=== PATIENT | male | born 1990 | race African-American/Black ===

== ENCOUNTER 2022-03-31 15:40 | Inpatient (IN) | payer OTHER ==
[2022-03-31 16:47] VITALS: RESP 18
[2022-03-31] MEDS ORDERED: NICOTINE 10 MG CARTRIDGE (INHALER) IH PRN (19:12)
[2022-03-31] MEDS ORDERED: MAG HYDROX/AL HYDROX/SIMETH 30 ML UNIT-DOSE CUP PO PRN (19:12)
[2022-03-31] MEDS ORDERED: IBUPROFEN 400 MG TABLET (FP) PO PRN (19:12)
[2022-03-31] MEDS ORDERED: DICYCLOMINE HCL 10 MG CAPSULE PO PRN (19:12)
[2022-03-31] MEDS ORDERED: BENZOCAINE/MENTHOL (CHLORASEPTIC ) LOZENGE MM PRN (19:12)
[2022-03-31] MEDS ORDERED: BISMUTH SUBSALICYLATE 524 MG/30 ML PO PRN (19:12)
[2022-03-31] MEDS ORDERED: ACETAMINOPHEN 325 MG TABLET (FP) PO PRN ×2 (19:12)
[2022-03-31] MEDS ORDERED: LOPERAMIDE HCL 2 MG CAPSULE PO PRN (19:12)
[2022-03-31] MEDS ORDERED: METHOCARBAMOL 500 MG TABLET PO PRN (19:12)
[2022-03-31] MEDS ORDERED: MAGNESIUM HYDROX 2400MG/30ML ORAL SUSPENSION 30 ML CUP PO PRN (19:12)
[2022-03-31] MEDS ORDERED: ONDANSETRON *ODT* 4 MG TABLET SL PRN (19:12)
[2022-03-31] MEDS ORDERED: IBUPROFEN 600 MG TABLET (FP) PO PRN (19:12)
[2022-03-31] MEDS ORDERED: MAGNESIUM CITRATE 300 ML BOTTLE PO PRN (19:12)
[2022-03-31 19:45] VITALS: BMI 20.3
[2022-03-31] MEDS: THIAMINE HCL 100 MG TABLET (FP) PO SCH (22:37)
[2022-03-31] MEDS: MELATONIN 5 MG TABLETS PO SCH (22:37)
[2022-03-31] MEDS: levETIRAcetam 500 MG TABLET (FP) PO SCH (22:37)
[2022-03-31] MEDS: hydrOXYzine PAMOATE 25 MG CAPSULE (FP) PO SCH (22:37)
[2022-04-01] MEDS: hydrOXYzine PAMOATE 25 MG CAPSULE (FP) PO SCH ×5 (07:21→21:28)
[2022-04-01] MEDS: levETIRAcetam 500 MG TABLET (FP) PO SCH ×2 (10:49→21:28)
[2022-04-01] MEDS: PRENATAL VITAMINS W/ FOLIC ACID TABLET (FP) PO SCH (10:49)
[2022-04-01 14:21] LABS: HEMATOCRIT 40.2 % (35.4-49); MCHC 34.8 g/dl (32.0-35.9); MEAN CELL VOLUME 103.2 fl (80-96); MEAN PLT VOLUME 9.2 fl (7.5-11.1); PLATELET COUNT 182 10^3/uL (134-434); WHITE BLOOD COUNT 5.3 K/mm3 (4.0-10.0)
[2022-04-01 14:33] LABS: CALCIUM 9.1 mg/dL (8.5-10.1)
[2022-04-01 14:34] LABS: ALBUMIN 3.9 g/dl (3.4-5.0); BLOOD UREA NITROGEN 12.2 mg/dL (7-18)
[2022-04-01 14:38] LABS: BILIRUBIN,TOTAL 0.5 mg/dL (0.2-1); TOT PROT 7.2 g/dl (6.4-8.2)
[2022-04-01] MEDS: THIAMINE HCL 100 MG TABLET (FP) PO SCH (21:28)
[2022-04-01] MEDS: MELATONIN 5 MG TABLETS PO SCH (21:28)
[2022-04-02] MEDS: hydrOXYzine PAMOATE 25 MG CAPSULE (FP) PO SCH ×3 (08:02→13:27)
[2022-04-02 08:55] VITALS: PULSE 67
[2022-04-02] MEDS: PRENATAL VITAMINS W/ FOLIC ACID TABLET (FP) PO SCH (10:22)
[2022-04-02] MEDS: levETIRAcetam 500 MG TABLET (FP) PO SCH (10:22)
[2022-04-02 13:17] VITALS: BP 148/98; TEMP 97.3
== END 2022-04-02 13:02 | disposition home or self-care (01) | DRG 775 ==
LOC: YASAS 15:40 → UNDOADMIN 18:44 → Y3N 18:44 → UNDOADMIN 18:48
PROVIDERS: ADMIT Allergy & Immunology; ATTEND Surgery
PROC: HZ2ZZZZ Detoxification Services for Substance Abuse Treatment (ICD-10-PCS; principal; 2022-03-31)
DX: F10.230 Alcohol dependence with withdrawal, uncomplicated (principal); G40.909 Epilepsy, unspecified, not intractable, without status epilepticus; J45.909 Unspecified asthma, uncomplicated; R03.0 Elevated blood-pressure reading, without diagnosis of hypertension; R73.9 Hyperglycemia, unspecified
CPT/HCPCS: 36415; 80053; 85027; 86780; 87811; C9803-CS; U0003; U0005

== ENCOUNTER 2022-04-25 14:00 | Inpatient (IN) | payer OTHER ==
[2022-04-25 16:47] VITALS: BMI 20.3
[2022-04-25] MEDS ORDERED: IBUPROFEN 600 MG TABLET (FP) PO PRN (19:54)
[2022-04-25] MEDS ORDERED: MAGNESIUM HYDROX 2400MG/30ML ORAL SUSPENSION 30 ML CUP PO PRN (19:54)
[2022-04-25] MEDS ORDERED: NALOXONE HCL (KLOXXADO) 8 MG SPRAY NS PRN (19:54)
[2022-04-25] MEDS ORDERED: ONDANSETRON *ODT* 4 MG TABLET SL PRN (19:54)
[2022-04-25] MEDS ORDERED: LOPERAMIDE HCL 2 MG CAPSULE PO PRN (19:54)
[2022-04-25] MEDS ORDERED: MAGNESIUM CITRATE 300 ML BOTTLE PO PRN (19:54)
[2022-04-25] MEDS ORDERED: BISMUTH SUBSALICYLATE 524 MG/30 ML PO PRN (19:54)
[2022-04-25] MEDS ORDERED: DICYCLOMINE HCL 10 MG CAPSULE PO PRN (19:54)
[2022-04-25] MEDS ORDERED: BENZOCAINE/MENTHOL (CHLORASEPTIC ) LOZENGE MM PRN (19:54)
[2022-04-25] MEDS ORDERED: MAG HYDROX/AL HYDROX/SIMETH 30 ML UNIT-DOSE CUP PO PRN (19:54)
[2022-04-25] MEDS ORDERED: ACETAMINOPHEN 325 MG TABLET (FP) PO PRN ×2 (19:54)
[2022-04-25] MEDS ORDERED: IBUPROFEN 400 MG TABLET (FP) PO PRN (19:54)
[2022-04-25] MEDS ORDERED: chlordiazePOXIDE HCL 25 MG CAPSULE PO PRN (19:56)
[2022-04-25] MEDS: THIAMINE HCL 100 MG TABLET (FP) PO SCH (21:22)
[2022-04-25] MEDS: METHOCARBAMOL 500 MG TABLET PO PRN (21:22)
[2022-04-25] MEDS: MELATONIN 5 MG TABLETS PO SCH (21:22)
[2022-04-25] MEDS: chlordiazePOXIDE HCL 25 MG CAPSULE PO SCH (22:55)
[2022-04-26] MEDS: chlordiazePOXIDE HCL 25 MG CAPSULE PO SCH ×4 (06:10→22:20)
[2022-04-26] MEDS: PRENATAL VITAMINS W/ FOLIC ACID TABLET (FP) PO SCH (10:25)
[2022-04-26 12:54] LABS: HEMATOCRIT 38.3 % (35.4-49); HEMOGLOBIN 13.4 GM/dL (11.7-16.9); MCHC 35.1 g/dl (32.0-35.9); MEAN CELL VOLUME 102.7 fl (80-96); MEAN PLT VOLUME 9.1 fl (7.5-11.1); PLATELET COUNT 154 10^3/uL (134-434); RBC 3.73 M/mm3 (4.00-5.60); RDW 13.1 % (11.9-15.9); WHITE BLOOD COUNT 4.3 K/mm3 (4.0-10.0)
[2022-04-26 13:04] LABS: CALCIUM 8.8 mg/dL (8.5-10.1)
[2022-04-26 13:05] LABS: ALBUMIN 3.6 g/dl (3.4-5.0); BLOOD UREA NITROGEN 10.6 mg/dL (7-18)
[2022-04-26 13:08] LABS: CREATININE 0.9 mg/dL (0.55-1.3)
[2022-04-26 13:10] LABS: BILIRUBIN,TOTAL 0.4 mg/dL (0.2-1); TOT PROT 6.9 g/dl (6.4-8.2)
[2022-04-26] MEDS: THIAMINE HCL 100 MG TABLET (FP) PO SCH (22:20)
[2022-04-26] MEDS: METHOCARBAMOL 500 MG TABLET PO PRN (22:20)
[2022-04-26] MEDS: cloNIDine HCL 0.1 MG TABLET PO PRN (22:20)
[2022-04-26] MEDS: MELATONIN 5 MG TABLETS PO SCH (22:21)
[2022-04-27] MEDS: chlordiazePOXIDE HCL 25 MG CAPSULE PO SCH ×4 (05:39→22:43)
[2022-04-27] MEDS: PRENATAL VITAMINS W/ FOLIC ACID TABLET (FP) PO SCH (10:11)
[2022-04-27] MEDS ORDERED: MECLIZINE HCL 25 MG TABLET (FP) PO PRN (10:42)
[2022-04-27] MEDS ORDERED: ALBUTEROL SO4 HFA INHALER IH PRN (10:42)
[2022-04-27] MEDS: levETIRAcetam 500 MG TABLET (FP) PO SCH ×2 (12:14→22:43)
[2022-04-27] MEDS: FAMOTIDINE 20 MG TABLET PO SCH ×2 (12:14→22:45)
[2022-04-27] MEDS: THIAMINE HCL 100 MG TABLET (FP) PO SCH (22:43)
[2022-04-27] MEDS: MELATONIN 5 MG TABLETS PO SCH (22:45)
[2022-04-28] MEDS ORDERED: chlordiazePOXIDE HCL 10 MG CAPSULE PO PRN
[2022-04-28] MEDS: chlordiazePOXIDE HCL 10 MG CAPSULE PO SCH ×4 (06:17→22:20)
[2022-04-28] MEDS: PRENATAL VITAMINS W/ FOLIC ACID TABLET (FP) PO SCH (10:52)
[2022-04-28] MEDS: levETIRAcetam 500 MG TABLET (FP) PO SCH ×2 (10:53→22:21)
[2022-04-28] MEDS: FAMOTIDINE 20 MG TABLET PO SCH ×2 (10:55→22:21)
[2022-04-28] MEDS: MELATONIN 5 MG TABLETS PO SCH (22:21)
[2022-04-28] MEDS: THIAMINE HCL 100 MG TABLET (FP) PO SCH (22:22)
[2022-04-28] MEDS: cloNIDine HCL 0.1 MG TABLET PO PRN (22:24)
[2022-04-29] MEDS: chlordiazePOXIDE HCL 10 MG CAPSULE PO SCH ×2 (05:49→18:00)
[2022-04-29] MEDS: levETIRAcetam 500 MG TABLET (FP) PO SCH ×2 (10:32→22:34)
[2022-04-29] MEDS: FAMOTIDINE 20 MG TABLET PO SCH ×3 (10:32→22:36)
[2022-04-29] MEDS: PRENATAL VITAMINS W/ FOLIC ACID TABLET (FP) PO SCH (10:32)
[2022-04-29] MEDS: THIAMINE HCL 100 MG TABLET (FP) PO SCH (22:34)
[2022-04-29] MEDS: MELATONIN 5 MG TABLETS PO SCH (22:35)
[2022-04-30] MEDS ORDERED: chlordiazePOXIDE HCL 10 MG CAPSULE PO ONE (05:00)
[2022-04-30] MEDS: levETIRAcetam 500 MG TABLET (FP) PO SCH (10:10)
[2022-04-30] MEDS: FAMOTIDINE 20 MG TABLET PO SCH (10:10)
[2022-04-30] MEDS: PRENATAL VITAMINS W/ FOLIC ACID TABLET (FP) PO SCH (10:10)
[2022-04-30 13:02] VITALS: BP 160/102; PULSE 68; RESP 17; TEMP 97.1
== END 2022-04-30 14:07 | disposition home or self-care (01) | DRG 775 ==
LOC: YASAS 14:00 → Y6N 20:22
PROVIDERS: ADMIT Allergy & Immunology; ATTEND Family Medicine Addiction Medicine
PROC: HZ2ZZZZ Detoxification Services for Substance Abuse Treatment (ICD-10-PCS; principal; 2022-04-25)
DX: F10.230 Alcohol dependence with withdrawal, uncomplicated (principal); G40.909 Epilepsy, unspecified, not intractable, without status epilepticus; J45.20 Mild intermittent asthma, uncomplicated; K21.9 Gastro-esophageal reflux disease without esophagitis; R03.0 Elevated blood-pressure reading, without diagnosis of hypertension
CPT/HCPCS: 36415; 80053; 82746; 85027; 86780; 93005; 93010; C9803-CS; U0003; U0005

== ENCOUNTER 2022-05-01 11:29 | Inpatient (IN) | payer OTHER ==
[2022-05-01 12:11] VITALS: BMI 20.3
[2022-05-01] MEDS ORDERED: ACETAMINOPHEN 325 MG TABLET (FP) PO PRN (12:39)
[2022-05-01] MEDS ORDERED: P-EPHED 60MG/TRIPROLIDI 2.5MG TABLET PO PRN (12:39)
[2022-05-01] MEDS ORDERED: MAGNESIUM CITRATE 300 ML BOTTLE PO PRN (12:39)
[2022-05-01] MEDS ORDERED: LOPERAMIDE HCL 2 MG CAPSULE PO PRN (12:39)
[2022-05-01] MEDS ORDERED: MAG HYDROX/AL HYDROX/SIMETH 30 ML UNIT-DOSE CUP PO PRN (12:39)
[2022-05-01] MEDS ORDERED: MAGNESIUM HYDROX 2400MG/30ML ORAL SUSPENSION 30 ML CUP PO PRN (12:39)
[2022-05-01] MEDS ORDERED: guaiFENesin 200 MG/10 ML 10 ML UNIT-DOSE CUPS PO PRN (12:39)
[2022-05-01] MEDS ORDERED: IBUPROFEN 400 MG TABLET (FP) PO PRN (12:39)
[2022-05-01 16:09] LABS: HEMATOCRIT 40.6 % (35.4-49); HEMOGLOBIN 13.9 GM/dL (11.7-16.9); MCH 34.9 pg (25.7-33.7); MCHC 34.2 g/dl (32.0-35.9); MEAN CELL VOLUME 102.1 fl (80-96); MEAN PLT VOLUME 9.1 fl (7.5-11.1); PLATELET COUNT 242 10^3/uL (134-434); RBC 3.98 M/mm3 (4.00-5.60); RDW 13.1 % (11.9-15.9); WHITE BLOOD COUNT 6.3 K/mm3 (4.0-10.0)
[2022-05-01 16:12] LABS: BLOOD UREA NITROGEN 9.8 mg/dL (7-18); CALCIUM 9.3 mg/dL (8.5-10.1)
[2022-05-01 16:13] LABS: ALBUMIN 4.2 g/dl (3.4-5.0)
[2022-05-01 16:15] LABS: CREATININE 0.9 mg/dL (0.55-1.3)
[2022-05-01 16:17] LABS: BILIRUBIN,TOTAL 0.3 mg/dL (0.2-1); TOT PROT 7.9 g/dl (6.4-8.2)
[2022-05-01 16:40] LABS: SYPHILIS W/ RPR CONF NON-REACTIVE (NONREACTIVE)
[2022-05-01] MEDS: hydrOXYzine PAMOATE 25 MG CAPSULE (FP) PO SCH ×3 (17:55→21:25)
[2022-05-01] MEDS: PRENATAL VITAMINS W/ FOLIC ACID TABLET (FP) PO SCH (17:55)
[2022-05-01 20:53] LABS: URINE APPEARANCE CLEAR; URINE BILIRUBIN NEGATIVE (NEGATIVE); URINE COLOR YELLOW; URINE GLUCOSE (UA) NEGATIVE (NEGATIVE); URINE KETONE TRACE (NEGATIVE); URINE LEUK ESTERASE NEGATIVE (NEGATIVE); URINE NITRITE NEGATIVE (NEGATIVE); URINE PROTEIN NEGATIVE (NEGATIVE)
[2022-05-01] MEDS: MELATONIN 5 MG TABLETS PO SCH (21:25)
[2022-05-01] MEDS: THIAMINE HCL 100 MG TABLET (FP) PO SCH (21:25)
[2022-05-01] MEDS: levETIRAcetam 500 MG TABLET (FP) PO SCH (21:25)
[2022-05-02] MEDS: hydrOXYzine PAMOATE 25 MG CAPSULE (FP) PO SCH ×3 (06:32→14:14)
[2022-05-02] MEDS: ALBUTEROL SO4 HFA INHALER IH PRN (06:34)
[2022-05-02 06:53] VITALS: RESP 18
[2022-05-02] MEDS: PRENATAL VITAMINS W/ FOLIC ACID TABLET (FP) PO SCH (10:42)
[2022-05-02] MEDS: levETIRAcetam 500 MG TABLET (FP) PO SCH ×2 (10:42→21:12)
[2022-05-02] MEDS ORDERED: FAMOTIDINE 20 MG TABLET PO PRN (16:22)
[2022-05-02] MEDS: MELATONIN 5 MG TABLETS PO SCH (21:11)
[2022-05-02] MEDS: THIAMINE HCL 100 MG TABLET (FP) PO SCH (21:11)
[2022-05-03] MEDS: hydrOXYzine PAMOATE 25 MG CAPSULE (FP) PO PRN (06:20)
[2022-05-03] MEDS: ALBUTEROL SO4 HFA INHALER IH PRN ×2 (06:50→18:30)
[2022-05-03] MEDS: levETIRAcetam 500 MG TABLET (FP) PO SCH ×2 (10:10→21:11)
[2022-05-03] MEDS: FOLIC ACID 1 MG TABLET (FP) PO SCH (10:11)
[2022-05-03] MEDS: PRENATAL VITAMINS W/ FOLIC ACID TABLET (FP) PO SCH (10:11)
[2022-05-03] MEDS: MELATONIN 5 MG TABLETS PO SCH (21:11)
[2022-05-03] MEDS: THIAMINE HCL 100 MG TABLET (FP) PO SCH (21:11)
[2022-05-04] MEDS: ALBUTEROL SO4 HFA INHALER IH PRN ×2 (06:50→18:14)
[2022-05-04] MEDS: hydrOXYzine PAMOATE 25 MG CAPSULE (FP) PO PRN (06:50)
[2022-05-04] MEDS: FOLIC ACID 1 MG TABLET (FP) PO SCH (10:01)
[2022-05-04] MEDS: levETIRAcetam 500 MG TABLET (FP) PO SCH ×2 (10:01→21:15)
[2022-05-04] MEDS: PRENATAL VITAMINS W/ FOLIC ACID TABLET (FP) PO SCH (10:01)
[2022-05-04] MEDS: THIAMINE HCL 100 MG TABLET (FP) PO SCH (21:15)
[2022-05-04] MEDS: MELATONIN 5 MG TABLETS PO SCH (21:15)
[2022-05-05] MEDS: ALBUTEROL SO4 HFA INHALER IH PRN (06:13)
[2022-05-05] MEDS: hydrOXYzine PAMOATE 25 MG CAPSULE (FP) PO PRN (06:14)
[2022-05-05] MEDS: FOLIC ACID 1 MG TABLET (FP) PO SCH (10:02)
[2022-05-05] MEDS: levETIRAcetam 500 MG TABLET (FP) PO SCH ×2 (10:02→21:09)
[2022-05-05] MEDS: PRENATAL VITAMINS W/ FOLIC ACID TABLET (FP) PO SCH (10:02)
[2022-05-05] MEDS: THIAMINE HCL 100 MG TABLET (FP) PO SCH (21:09)
[2022-05-05] MEDS: MELATONIN 5 MG TABLETS PO SCH (21:09)
[2022-05-06] MEDS: hydrOXYzine PAMOATE 25 MG CAPSULE (FP) PO PRN (06:39)
[2022-05-06] MEDS: ALBUTEROL SO4 HFA INHALER IH PRN (06:39)
[2022-05-06] MEDS: PRENATAL VITAMINS W/ FOLIC ACID TABLET (FP) PO SCH (10:10)
[2022-05-06] MEDS: levETIRAcetam 500 MG TABLET (FP) PO SCH ×2 (10:10→21:34)
[2022-05-06] MEDS: FOLIC ACID 1 MG TABLET (FP) PO SCH (10:10)
[2022-05-06] MEDS: MELATONIN 5 MG TABLETS PO SCH (21:34)
[2022-05-06] MEDS: THIAMINE HCL 100 MG TABLET (FP) PO SCH (21:34)
[2022-05-07] MEDS: hydrOXYzine PAMOATE 25 MG CAPSULE (FP) PO PRN ×2 (06:59→23:03)
[2022-05-07] MEDS: ALBUTEROL SO4 HFA INHALER IH PRN (06:59)
[2022-05-07 07:32] VITALS: TEMP 97.5
[2022-05-07] MEDS: levETIRAcetam 500 MG TABLET (FP) PO SCH ×2 (10:23→21:22)
[2022-05-07] MEDS: FOLIC ACID 1 MG TABLET (FP) PO SCH (10:23)
[2022-05-07] MEDS: PRENATAL VITAMINS W/ FOLIC ACID TABLET (FP) PO SCH (10:23)
[2022-05-07] MEDS: MELATONIN 5 MG TABLETS PO SCH (21:22)
[2022-05-07] MEDS: THIAMINE HCL 100 MG TABLET (FP) PO SCH (21:22)
[2022-05-08] MEDS: ALBUTEROL SO4 HFA INHALER IH PRN (07:52)
[2022-05-08] MEDS: hydrOXYzine PAMOATE 25 MG CAPSULE (FP) PO PRN (07:52)
[2022-05-08] MEDS: PRENATAL VITAMINS W/ FOLIC ACID TABLET (FP) PO SCH (10:18)
[2022-05-08] MEDS: FOLIC ACID 1 MG TABLET (FP) PO SCH (10:18)
[2022-05-08] MEDS: levETIRAcetam 500 MG TABLET (FP) PO SCH ×2 (10:18→21:29)
[2022-05-08] MEDS: THIAMINE HCL 100 MG TABLET (FP) PO SCH (21:29)
[2022-05-08] MEDS: MELATONIN 5 MG TABLETS PO SCH (21:29)
[2022-05-09] MEDS: hydrOXYzine PAMOATE 25 MG CAPSULE (FP) PO PRN (06:18)
[2022-05-09] MEDS: ALBUTEROL SO4 HFA INHALER IH PRN (06:18)
[2022-05-09 07:11] VITALS: BP 141/92; PULSE 61
[2022-05-09] MEDS: FOLIC ACID 1 MG TABLET (FP) PO SCH (10:44)
[2022-05-09] MEDS: levETIRAcetam 500 MG TABLET (FP) PO SCH (10:44)
[2022-05-09] MEDS: PRENATAL VITAMINS W/ FOLIC ACID TABLET (FP) PO SCH (10:44)
== END 2022-05-09 11:15 | disposition home or self-care (01) | DRG 772 ==
LOC: YASAS 11:29 → Y3W 16:55
PROVIDERS: ADMIT Allergy & Immunology; ATTEND Psychiatry & Neurology Pain Medicine
PROC: HZ42ZZZ Group Counseling for Substance Abuse Treatment, Cognitive-Behavioral (ICD-10-PCS; principal; 2022-05-01)
DX: F10.20 Alcohol dependence, uncomplicated (principal); F32.A Depression, unspecified; G40.909 Epilepsy, unspecified, not intractable, without status epilepticus; J45.20 Mild intermittent asthma, uncomplicated; K21.9 Gastro-esophageal reflux disease without esophagitis
CPT/HCPCS: 36415; 80053; 81003; 85027; 86780; 86803; C9803-CS; U0003; U0005

== ENCOUNTER 2022-06-05 12:03 | Inpatient (IN) | payer OTHER ==
[2022-06-05 13:37] VITALS: BMI 24.4
[2022-06-05] MEDS ORDERED: chlordiazePOXIDE HCL 25 MG CAPSULE PO PRN (14:00)
[2022-06-05] MEDS ORDERED: ACETAMINOPHEN 325 MG TABLET (FP) PO PRN (14:00)
[2022-06-05] MEDS ORDERED: MAGNESIUM CITRATE 300 ML BOTTLE PO PRN (14:00)
[2022-06-05] MEDS ORDERED: BENZOCAINE/MENTHOL (CHLORASEPTIC ) LOZENGE MM PRN (14:00)
[2022-06-05] MEDS ORDERED: MAGNESIUM HYDROX 2400MG/30ML ORAL SUSPENSION 30 ML CUP PO PRN (14:00)
[2022-06-05] MEDS ORDERED: DICYCLOMINE HCL 10 MG CAPSULE PO PRN (14:00)
[2022-06-05] MEDS ORDERED: BISMUTH SUBSALICYLATE 524 MG/30 ML PO PRN (14:00)
[2022-06-05] MEDS ORDERED: MAG HYDROX/AL HYDROX/SIMETH 30 ML UNIT-DOSE CUP PO PRN (14:00)
[2022-06-05] MEDS ORDERED: LOPERAMIDE HCL 2 MG CAPSULE PO PRN (14:00)
[2022-06-05] MEDS ORDERED: NICOTINE 10 MG CARTRIDGE (INHALER) IH PRN (14:00)
[2022-06-05] MEDS ORDERED: IBUPROFEN 600 MG TABLET (FP) PO PRN (14:00)
[2022-06-05] MEDS ORDERED: NALOXONE HCL (KLOXXADO) 8 MG SPRAY NS PRN (14:00)
[2022-06-05] MEDS ORDERED: IBUPROFEN 400 MG TABLET (FP) PO PRN (14:00)
[2022-06-05] MEDS ORDERED: ONDANSETRON *ODT* 4 MG TABLET SL PRN (14:00)
[2022-06-05] MEDS ORDERED: MECLIZINE HCL 25 MG TABLET (FP) PO PRN (14:01)
[2022-06-05] MEDS ORDERED: ALBUTEROL SO4 HFA INHALER IH PRN (14:01)
[2022-06-05 15:53] LABS: HEMATOCRIT 37.8 % (35.4-49); HEMOGLOBIN 13.1 GM/dL (11.7-16.9); MCH 34.5 pg (25.7-33.7); MCHC 34.8 g/dl (32.0-35.9); MEAN CELL VOLUME 99.3 fl (80-96); MEAN PLT VOLUME 8.9 fl (7.5-11.1); PLATELET COUNT 207 10^3/uL (134-434); RBC 3.81 M/mm3 (4.00-5.60); RDW 12.3 % (11.9-15.9); WHITE BLOOD COUNT 5.9 K/mm3 (4.0-10.0)
[2022-06-05 16:30] LABS: ALBUMIN 4.2 g/dl (3.4-5.0); BLOOD UREA NITROGEN 10.7 mg/dL (7-18); CALCIUM 9.4 mg/dL (8.5-10.1)
[2022-06-05 16:35] LABS: BILIRUBIN,TOTAL 0.3 mg/dL (0.2-1); TOT PROT 7.4 g/dl (6.4-8.2)
[2022-06-05] MEDS: chlordiazePOXIDE HCL 25 MG CAPSULE PO SCH ×2 (17:56→22:22)
[2022-06-05] MEDS: THIAMINE HCL 100 MG TABLET (FP) PO SCH (22:22)
[2022-06-05] MEDS: levETIRAcetam 500 MG TABLET (FP) PO SCH (22:22)
[2022-06-05] MEDS: MELATONIN 5 MG TABLETS PO SCH (22:22)
[2022-06-06] MEDS: chlordiazePOXIDE HCL 25 MG CAPSULE PO SCH ×4 (05:05→22:08)
[2022-06-06] MEDS: ACETAMINOPHEN 325 MG TABLET (FP) PO PRN (05:20)
[2022-06-06] MEDS: PRENATAL VITAMINS W/ FOLIC ACID TABLET (FP) PO SCH (10:25)
[2022-06-06] MEDS: levETIRAcetam 500 MG TABLET (FP) PO SCH ×2 (10:25→22:07)
[2022-06-06] MEDS: hydrOXYzine PAMOATE 25 MG CAPSULE (FP) PO PRN (22:07)
[2022-06-06] MEDS: METHOCARBAMOL 500 MG TABLET PO PRN (22:07)
[2022-06-06] MEDS: MELATONIN 5 MG TABLETS PO SCH (22:08)
[2022-06-06] MEDS: THIAMINE HCL 100 MG TABLET (FP) PO SCH (22:08)
[2022-06-07] MEDS: chlordiazePOXIDE HCL 25 MG CAPSULE PO SCH ×4 (05:37→22:26)
[2022-06-07] MEDS: METHOCARBAMOL 500 MG TABLET PO PRN (10:10)
[2022-06-07] MEDS: PRENATAL VITAMINS W/ FOLIC ACID TABLET (FP) PO SCH (10:10)
[2022-06-07] MEDS: levETIRAcetam 500 MG TABLET (FP) PO SCH ×2 (10:10→22:28)
[2022-06-07] MEDS: hydrOXYzine PAMOATE 25 MG CAPSULE (FP) PO PRN (20:00)
[2022-06-07] MEDS: THIAMINE HCL 100 MG TABLET (FP) PO SCH (22:27)
[2022-06-07] MEDS: MELATONIN 5 MG TABLETS PO SCH (22:27)
[2022-06-08] MEDS ORDERED: chlordiazePOXIDE HCL 10 MG CAPSULE PO PRN
[2022-06-08] MEDS: chlordiazePOXIDE HCL 10 MG CAPSULE PO SCH ×2 (05:27→10:17)
[2022-06-08 09:25] VITALS: BP 129/80; PULSE 79; RESP 17; TEMP 98.6
[2022-06-08] MEDS: levETIRAcetam 500 MG TABLET (FP) PO SCH (10:17)
[2022-06-08] MEDS: PRENATAL VITAMINS W/ FOLIC ACID TABLET (FP) PO SCH (10:17)
[2022-06-08] MEDS: ACETAMINOPHEN 325 MG TABLET (FP) PO PRN (10:18)
[2022-06-09] MEDS ORDERED: chlordiazePOXIDE HCL 10 MG CAPSULE PO SCH (05:00)
[2022-06-10] MEDS ORDERED: chlordiazePOXIDE HCL 10 MG CAPSULE PO ONE (05:00)
== END 2022-06-08 11:34 | disposition left against medical advice (07) | DRG 770 ==
LOC: YASAS 12:03 → Y3N 14:10
PROVIDERS: ADMIT Allergy & Immunology; ATTEND Surgery
PROC: HZ2ZZZZ Detoxification Services for Substance Abuse Treatment (ICD-10-PCS; principal; 2022-06-05)
DX: F10.230 Alcohol dependence with withdrawal, uncomplicated (principal); G40.909 Epilepsy, unspecified, not intractable, without status epilepticus; J45.20 Mild intermittent asthma, uncomplicated; G47.00 Insomnia, unspecified; K21.9 Gastro-esophageal reflux disease without esophagitis; Z56.0 Unemployment, unspecified; Z59.00 Homelessness unspecified
CPT/HCPCS: 36415; 80053; 85027; 86780; 87811; C9803-CS; U0003; U0005

== ENCOUNTER 2022-07-01 21:51 | Inpatient (IN) | payer OTHER ==
[2022-07-01 22:22] VITALS: BMI 23.0
[2022-07-01] MEDS ORDERED: MAG HYDROX/AL HYDROX/SIMETH 30 ML UNIT-DOSE CUP PO PRN (22:47)
[2022-07-01] MEDS ORDERED: DICYCLOMINE HCL 10 MG CAPSULE PO PRN (22:47)
[2022-07-01] MEDS ORDERED: ACETAMINOPHEN 325 MG TABLET (FP) PO PRN ×2 (22:47)
[2022-07-01] MEDS ORDERED: BENZOCAINE/MENTHOL (CHLORASEPTIC ) LOZENGE MM PRN (22:47)
[2022-07-01] MEDS ORDERED: ONDANSETRON *ODT* 4 MG TABLET SL PRN (22:47)
[2022-07-01] MEDS ORDERED: IBUPROFEN 400 MG TABLET (FP) PO PRN (22:47)
[2022-07-01] MEDS ORDERED: guaiFENesin 200 MG/10 ML 10 ML UNIT-DOSE CUPS PO PRN (22:47)
[2022-07-01] MEDS ORDERED: MAGNESIUM HYDROX 2400MG/30ML ORAL SUSPENSION 30 ML CUP PO PRN (22:47)
[2022-07-01] MEDS ORDERED: IBUPROFEN 600 MG TABLET (FP) PO PRN (22:47)
[2022-07-01] MEDS ORDERED: POLYETHYLENE GLYCOL (HEALTHYLAX) 3350 17 GM PACKET PO PRN (22:47)
[2022-07-01] MEDS ORDERED: P-EPHED 60MG/TRIPROLIDI 2.5MG TABLET PO PRN (22:47)
[2022-07-01] MEDS ORDERED: LOPERAMIDE HCL 2 MG CAPSULE PO PRN (22:47)
[2022-07-01] MEDS ORDERED: BISMUTH SUBSALICYLATE 524 MG/30 ML PO PRN (22:47)
[2022-07-01] MEDS ORDERED: ALBUTEROL SO4 HFA INHALER IH PRN (23:23)
[2022-07-02] MEDS: METHOCARBAMOL 500 MG TABLET PO PRN ×3 (02:47→22:26)
[2022-07-02] MEDS: hydrOXYzine PAMOATE 25 MG CAPSULE (FP) PO PRN ×3 (02:47→22:26)
[2022-07-02] MEDS: levETIRAcetam 500 MG TABLET (FP) PO SCH ×2 (09:45→22:26)
[2022-07-02] MEDS: PRENATAL VITAMINS W/ FOLIC ACID TABLET (FP) PO SCH (09:45)
[2022-07-02] MEDS ORDERED: MELATONIN 5 MG TABLETS PO PRN (10:48)
[2022-07-02 12:10] LABS: PH,URINE 5.5 (5.0-8.0); URINE APPEARANCE CLEAR; URINE BILIRUBIN NEGATIVE (NEGATIVE); URINE COLOR YELLOW; URINE GLUCOSE (UA) NEGATIVE (NEGATIVE); URINE KETONE NEGATIVE (NEGATIVE); URINE LEUK ESTERASE NEGATIVE (NEGATIVE); URINE NITRITE NEGATIVE (NEGATIVE); URINE PROTEIN NEGATIVE (NEGATIVE); URINE UROBILINOGEN 0.2 mg/dL (0.2-1.0)
[2022-07-02 12:19] LABS: CALCIUM 8.8 mg/dL (8.5-10.1)
[2022-07-02 12:20] LABS: ALBUMIN 3.6 g/dl (3.4-5.0); BLOOD UREA NITROGEN 14.9 mg/dL (7-18)
[2022-07-02 12:24] LABS: TOT PROT 6.7 g/dl (6.4-8.2)
[2022-07-02 12:25] LABS: BILIRUBIN,TOTAL 0.4 mg/dL (0.2-1)
[2022-07-02 12:43] LABS: HEMATOCRIT 37.7 % (35.4-49); HEMOGLOBIN 12.9 GM/dL (11.7-16.9); MCH 33.9 pg (25.7-33.7); MCHC 34.2 g/dl (32.0-35.9); MEAN CELL VOLUME 99.1 fl (80-96); MEAN PLT VOLUME 9.1 fl (7.5-11.1); PLATELET COUNT 219 10^3/uL (134-434); RDW 12.7 % (11.9-15.9); WHITE BLOOD COUNT 4.2 K/mm3 (4.0-10.0)
[2022-07-02] MEDS ORDERED: MELATONIN 5 MG TABLETS PO SCH (22:00)
[2022-07-02] MEDS ORDERED: THIAMINE HCL 100 MG TABLET (FP) PO SCH (22:00)
[2022-07-03 09:44] VITALS: BP 145/87; PULSE 78; RESP 17; TEMP 97.7
[2022-07-03] MEDS: PRENATAL VITAMINS W/ FOLIC ACID TABLET (FP) PO SCH (10:11)
[2022-07-03] MEDS: levETIRAcetam 500 MG TABLET (FP) PO SCH (10:11)
== END 2022-07-03 12:49 | disposition other institution (70) | DRG 775 ==
LOC: YASAS 21:51 → Y6N 23:34 → UNDOADMIN 23:34
PROVIDERS: ADMIT Allergy & Immunology; ATTEND Surgery
PROC: HZ2ZZZZ Detoxification Services for Substance Abuse Treatment (ICD-10-PCS; principal; 2022-07-01)
DX: F10.230 Alcohol dependence with withdrawal, uncomplicated (principal); F10.282 Alcohol dependence with alcohol-induced sleep disorder; F19.282 Other psychoactive substance dependence with psychoactive substance-induced sleep disorder; F19.24 Other psychoactive substance dependence with psychoactive substance-induced mood disorder; F32.A Depression, unspecified; G40.909 Epilepsy, unspecified, not intractable, without status epilepticus; J45.909 Unspecified asthma, uncomplicated; K21.9 Gastro-esophageal reflux disease without esophagitis
CPT/HCPCS: 36415; 80053; 80177; 81003; 85027; 86780; C9803-CS; U0003; U0005

== ENCOUNTER 2022-07-03 12:32 | Inpatient (IN) | payer OTHER ==
[2022-07-03] MEDS ORDERED: BENZOCAINE/MENTHOL (CHLORASEPTIC ) LOZENGE MM PRN (15:23)
[2022-07-03] MEDS ORDERED: guaiFENesin 200 MG/10 ML 10 ML UNIT-DOSE CUPS PO PRN (15:23)
[2022-07-03] MEDS ORDERED: MAG HYDROX/AL HYDROX/SIMETH 30 ML UNIT-DOSE CUP PO PRN (15:23)
[2022-07-03] MEDS ORDERED: P-EPHED 60MG/TRIPROLIDI 2.5MG TABLET PO PRN (15:23)
[2022-07-03] MEDS ORDERED: LOPERAMIDE HCL 2 MG CAPSULE PO PRN (15:23)
[2022-07-03] MEDS ORDERED: POLYETHYLENE GLYCOL (HEALTHYLAX) 3350 17 GM PACKET PO PRN (15:23)
[2022-07-03] MEDS ORDERED: NICOTINE 10 MG CARTRIDGE (INHALER) IH PRN (15:23)
[2022-07-03] MEDS ORDERED: MAGNESIUM HYDROX 2400MG/30ML ORAL SUSPENSION 30 ML CUP PO PRN (15:23)
[2022-07-03] MEDS ORDERED: ACETAMINOPHEN 325 MG TABLET (FP) PO PRN (15:23)
[2022-07-03] MEDS: MELATONIN 5 MG TABLETS PO SCH (21:22)
[2022-07-03] MEDS: levETIRAcetam 500 MG TABLET (FP) PO SCH (21:22)
[2022-07-03] MEDS: THIAMINE HCL 100 MG TABLET (FP) PO SCH (21:22)
[2022-07-03] MEDS: hydrOXYzine PAMOATE 25 MG CAPSULE (FP) PO PRN (22:36)
[2022-07-04] MEDS: PRENATAL VITAMINS W/ FOLIC ACID TABLET (FP) PO SCH (09:39)
[2022-07-04] MEDS: levETIRAcetam 500 MG TABLET (FP) PO SCH ×2 (09:39→21:15)
[2022-07-04] MEDS: NICOTINE 7 MG/24 HOURS TOPICAL PATCH TD SCH (09:40)
[2022-07-04] MEDS: ALBUTEROL SO4 HFA INHALER IH PRN (09:47)
[2022-07-04] MEDS: THIAMINE HCL 100 MG TABLET (FP) PO SCH (21:15)
[2022-07-04] MEDS: MELATONIN 5 MG TABLETS PO SCH (21:15)
[2022-07-04] MEDS: hydrOXYzine PAMOATE 25 MG CAPSULE (FP) PO PRN (21:16)
[2022-07-05] MEDS: levETIRAcetam 500 MG TABLET (FP) PO SCH ×2 (09:41→21:18)
[2022-07-05] MEDS: NICOTINE 7 MG/24 HOURS TOPICAL PATCH TD SCH (09:41)
[2022-07-05] MEDS: PRENATAL VITAMINS W/ FOLIC ACID TABLET (FP) PO SCH (09:41)
[2022-07-05] MEDS: MELATONIN 5 MG TABLETS PO SCH (21:17)
[2022-07-05] MEDS: THIAMINE HCL 100 MG TABLET (FP) PO SCH (21:18)
[2022-07-05] MEDS: hydrOXYzine PAMOATE 25 MG CAPSULE (FP) PO PRN (21:18)
[2022-07-06] MEDS: PRENATAL VITAMINS W/ FOLIC ACID TABLET (FP) PO SCH (09:50)
[2022-07-06] MEDS: levETIRAcetam 500 MG TABLET (FP) PO SCH ×2 (09:50→21:19)
[2022-07-06] MEDS: NICOTINE 7 MG/24 HOURS TOPICAL PATCH TD SCH (09:51)
[2022-07-06] MEDS: hydrOXYzine PAMOATE 25 MG CAPSULE (FP) PO PRN ×2 (09:51→21:19)
[2022-07-06] MEDS: IBUPROFEN 400 MG TABLET (FP) PO PRN (17:46)
[2022-07-06] MEDS: THIAMINE HCL 100 MG TABLET (FP) PO SCH (21:19)
[2022-07-06] MEDS: MELATONIN 5 MG TABLETS PO SCH (21:19)
[2022-07-07] MEDS: NICOTINE 7 MG/24 HOURS TOPICAL PATCH TD SCH (09:48)
[2022-07-07] MEDS: PRENATAL VITAMINS W/ FOLIC ACID TABLET (FP) PO SCH (09:48)
[2022-07-07] MEDS: hydrOXYzine PAMOATE 25 MG CAPSULE (FP) PO PRN ×2 (09:49→21:35)
[2022-07-07] MEDS: levETIRAcetam 500 MG TABLET (FP) PO SCH ×2 (09:49→21:35)
[2022-07-07] MEDS: IBUPROFEN 400 MG TABLET (FP) PO PRN (17:44)
[2022-07-07] MEDS: MELATONIN 5 MG TABLETS PO SCH (21:35)
[2022-07-07] MEDS: THIAMINE HCL 100 MG TABLET (FP) PO SCH (21:35)
[2022-07-08] MEDS: hydrOXYzine PAMOATE 25 MG CAPSULE (FP) PO PRN ×2 (06:44→18:19)
[2022-07-08] MEDS: levETIRAcetam 500 MG TABLET (FP) PO SCH ×2 (09:48→21:15)
[2022-07-08] MEDS: PRENATAL VITAMINS W/ FOLIC ACID TABLET (FP) PO SCH (09:48)
[2022-07-08] MEDS: NICOTINE 7 MG/24 HOURS TOPICAL PATCH TD SCH (09:49)
[2022-07-08] MEDS: IBUPROFEN 400 MG TABLET (FP) PO PRN (17:15)
[2022-07-08] MEDS: ALBUTEROL SO4 HFA INHALER IH PRN (18:20)
[2022-07-08] MEDS: THIAMINE HCL 100 MG TABLET (FP) PO SCH (21:15)
[2022-07-08] MEDS: MELATONIN 5 MG TABLETS PO SCH (21:15)
[2022-07-09] MEDS: IBUPROFEN 400 MG TABLET (FP) PO PRN ×2 (07:55→16:06)
[2022-07-09] MEDS: hydrOXYzine PAMOATE 25 MG CAPSULE (FP) PO PRN ×2 (07:56→21:16)
[2022-07-09] MEDS: NICOTINE 7 MG/24 HOURS TOPICAL PATCH TD SCH (09:37)
[2022-07-09] MEDS: levETIRAcetam 500 MG TABLET (FP) PO SCH ×2 (09:37→21:16)
[2022-07-09] MEDS: PRENATAL VITAMINS W/ FOLIC ACID TABLET (FP) PO SCH (09:37)
[2022-07-09] MEDS: THIAMINE HCL 100 MG TABLET (FP) PO SCH (21:16)
[2022-07-09] MEDS: MELATONIN 5 MG TABLETS PO SCH (21:16)
[2022-07-10] MEDS: hydrOXYzine PAMOATE 25 MG CAPSULE (FP) PO PRN ×2 (06:44→21:24)
[2022-07-10] MEDS: PRENATAL VITAMINS W/ FOLIC ACID TABLET (FP) PO SCH (09:37)
[2022-07-10] MEDS: levETIRAcetam 500 MG TABLET (FP) PO SCH ×2 (09:37→21:24)
[2022-07-10] MEDS: NICOTINE 7 MG/24 HOURS TOPICAL PATCH TD SCH (09:37)
[2022-07-10] MEDS: IBUPROFEN 400 MG TABLET (FP) PO PRN (17:04)
[2022-07-10] MEDS: MELATONIN 5 MG TABLETS PO SCH (21:23)
[2022-07-10] MEDS: THIAMINE HCL 100 MG TABLET (FP) PO SCH (21:24)
[2022-07-11 06:50] VITALS: BP 146/82; PULSE 77; RESP 16; TEMP 97.5
[2022-07-11] MEDS: NICOTINE 7 MG/24 HOURS TOPICAL PATCH TD SCH (09:03)
[2022-07-11] MEDS: hydrOXYzine PAMOATE 25 MG CAPSULE (FP) PO PRN (09:03)
[2022-07-11] MEDS: IBUPROFEN 400 MG TABLET (FP) PO PRN (09:03)
[2022-07-11] MEDS: PRENATAL VITAMINS W/ FOLIC ACID TABLET (FP) PO SCH (09:03)
[2022-07-11] MEDS: levETIRAcetam 500 MG TABLET (FP) PO SCH (09:03)
[2022-07-11] MEDS ORDERED: hydrOXYzine PAMOATE 25 MG CAPSULE (FP) PO PRN (10:12)
[2022-07-11] MEDS ORDERED: FLU VACC QS2022-23(6MOS UP)/PF 60 MCG/0.5 ML SYRINGE IM ONE (12:00)
== END 2022-07-11 13:45 | disposition home or self-care (01) | DRG 772 ==
LOC: YASAS 12:32 → Y5N 12:33
PROVIDERS: ADMIT Allergy & Immunology; ATTEND Psychiatry & Neurology Pain Medicine
PROC: HZ42ZZZ Group Counseling for Substance Abuse Treatment, Cognitive-Behavioral (ICD-10-PCS; principal; 2022-07-03)
DX: F10.20 Alcohol dependence, uncomplicated (principal); F10.280 Alcohol dependence with alcohol-induced anxiety disorder; F10.282 Alcohol dependence with alcohol-induced sleep disorder; F32.A Depression, unspecified; G40.909 Epilepsy, unspecified, not intractable, without status epilepticus; G47.00 Insomnia, unspecified; K21.9 Gastro-esophageal reflux disease without esophagitis

== ENCOUNTER 2022-09-11 14:13 | Inpatient (IN) | payer OTHER ==
[2022-09-11 15:11] VITALS: BMI 23.0
[2022-09-11] MEDS ORDERED: LOPERAMIDE HCL 2 MG CAPSULE PO PRN (16:43)
[2022-09-11] MEDS ORDERED: ONDANSETRON *ODT* 4 MG TABLET SL PRN (16:43)
[2022-09-11] MEDS ORDERED: IBUPROFEN 600 MG TABLET (FP) PO PRN (16:43)
[2022-09-11] MEDS ORDERED: ACETAMINOPHEN 325 MG TABLET (FP) PO PRN ×2 (16:43)
[2022-09-11] MEDS ORDERED: DICYCLOMINE HCL 10 MG CAPSULE PO PRN (16:43)
[2022-09-11] MEDS ORDERED: BENZOCAINE/MENTHOL (CHLORASEPTIC ) LOZENGE MM PRN (16:43)
[2022-09-11] MEDS ORDERED: NICOTINE 10 MG CARTRIDGE (INHALER) IH PRN (16:43)
[2022-09-11] MEDS ORDERED: BISMUTH SUBSALICYLATE 524 MG/30 ML PO PRN (16:43)
[2022-09-11] MEDS ORDERED: MAGNESIUM HYDROX 2400MG/30ML ORAL SUSPENSION 30 ML CUP PO PRN (16:43)
[2022-09-11] MEDS ORDERED: MAG HYDROX/AL HYDROX/SIMETH 30 ML UNIT-DOSE CUP PO PRN (16:43)
[2022-09-11] MEDS ORDERED: POLYETHYLENE GLYCOL (HEALTHYLAX) 3350 17 GM PACKET PO PRN (16:43)
[2022-09-11] MEDS ORDERED: NALOXONE HCL (KLOXXADO) 8 MG SPRAY NS PRN (16:43)
[2022-09-11] MEDS ORDERED: IBUPROFEN 400 MG TABLET (FP) PO PRN (16:43)
[2022-09-11] MEDS ORDERED: MECLIZINE HCL 25 MG TABLET (FP) PO PRN (16:51)
[2022-09-11] MEDS: chlordiazePOXIDE HCL 25 MG CAPSULE PO SCH ×2 (17:17→22:08)
[2022-09-11] MEDS: PRENATAL VITAMINS W/ FOLIC ACID TABLET (FP) PO SCH (17:17)
[2022-09-11] MEDS ORDERED: chlordiazePOXIDE HCL 25 MG CAPSULE ONE (17:29)
[2022-09-11] MEDS ORDERED: IBUPROFEN 600 MG TABLET (FP) PO ONE (17:29)
[2022-09-11] MEDS ORDERED: PRENATAL VITAMINS W/ FOLIC ACID TABLET (FP) PO ONE (17:29)
[2022-09-11] MEDS: THIAMINE HCL 100 MG TABLET (FP) PO SCH (21:27)
[2022-09-11] MEDS: MELATONIN 5 MG TABLETS PO SCH (21:28)
[2022-09-11] MEDS: levETIRAcetam 500 MG TABLET (FP) PO SCH (21:28)
[2022-09-12] MEDS: chlordiazePOXIDE HCL 25 MG CAPSULE PO SCH ×4 (04:40→22:33)
[2022-09-12] MEDS: ALBUTEROL SO4 HFA INHALER IH PRN ×2 (10:13→22:38)
[2022-09-12] MEDS: PRENATAL VITAMINS W/ FOLIC ACID TABLET (FP) PO SCH (10:13)
[2022-09-12] MEDS: levETIRAcetam 500 MG TABLET (FP) PO SCH ×2 (10:13→22:33)
[2022-09-12 10:49] LABS: HEMATOCRIT 35.7 % (35.4-49); HEMOGLOBIN 12.8 GM/dL (11.7-16.9); MCH 35.8 pg (25.7-33.7); MCHC 35.8 g/dl (32.0-35.9); MEAN PLT VOLUME 7.4 fl (7.5-11.1); PLATELET COUNT 345 10^3/uL (134-434); RBC 3.57 M/mm3 (4.00-5.60); RDW 15.6 % (11.9-15.9); WHITE BLOOD COUNT 4.1 K/mm3 (4.0-10.0)
[2022-09-12 12:46] LABS: BLOOD UREA NITROGEN 15.8 mg/dL (7-18); CALCIUM 8.9 mg/dL (8.5-10.1)
[2022-09-12 12:47] LABS: ALBUMIN 3.7 g/dl (3.4-5.0)
[2022-09-12 12:49] LABS: CREATININE 0.9 mg/dL (0.55-1.3)
[2022-09-12 12:51] LABS: TOT PROT 6.9 g/dl (6.4-8.2)
[2022-09-12 12:52] LABS: BILIRUBIN,TOTAL 0.6 mg/dL (0.2-1)
[2022-09-12] MEDS ORDERED: hydrOXYzine PAMOATE 25 MG CAPSULE (FP) PO ONE (20:57)
[2022-09-12] MEDS: THIAMINE HCL 100 MG TABLET (FP) PO SCH (22:32)
[2022-09-12] MEDS: MELATONIN 5 MG TABLETS PO SCH (22:32)
[2022-09-13] MEDS: chlordiazePOXIDE HCL 25 MG CAPSULE PO SCH ×4 (05:40→22:01)
[2022-09-13] MEDS: PRENATAL VITAMINS W/ FOLIC ACID TABLET (FP) PO SCH (10:22)
[2022-09-13] MEDS: levETIRAcetam 500 MG TABLET (FP) PO SCH ×2 (10:22→22:00)
[2022-09-13] MEDS: MELATONIN 5 MG TABLETS PO SCH (22:00)
[2022-09-13] MEDS: THIAMINE HCL 100 MG TABLET (FP) PO SCH (22:00)
[2022-09-13] MEDS: METHOCARBAMOL 500 MG TABLET PO PRN (22:00)
[2022-09-14] MEDS: chlordiazePOXIDE HCL 10 MG CAPSULE PO SCH ×4 (06:00→22:04)
[2022-09-14] MEDS: levETIRAcetam 500 MG TABLET (FP) PO SCH ×2 (10:01→21:39)
[2022-09-14] MEDS: PRENATAL VITAMINS W/ FOLIC ACID TABLET (FP) PO SCH (10:01)
[2022-09-14] MEDS: THIAMINE HCL 100 MG TABLET (FP) PO SCH (21:39)
[2022-09-14] MEDS: METHOCARBAMOL 500 MG TABLET PO PRN (21:39)
[2022-09-14] MEDS: ALBUTEROL SO4 HFA INHALER IH PRN (21:41)
[2022-09-14] MEDS: MELATONIN 5 MG TABLETS PO SCH (21:55)
[2022-09-15] MEDS ORDERED: chlordiazePOXIDE HCL 10 MG CAPSULE PO SCH (05:00)
[2022-09-15 10:08] VITALS: BP 103/65; PULSE 64; RESP 18; TEMP 97.5
[2022-09-15] MEDS: levETIRAcetam 500 MG TABLET (FP) PO SCH (10:32)
[2022-09-15] MEDS: PRENATAL VITAMINS W/ FOLIC ACID TABLET (FP) PO SCH (10:32)
[2022-09-16] MEDS ORDERED: chlordiazePOXIDE HCL 10 MG CAPSULE PO ONE (05:00)
== END 2022-09-15 10:19 | disposition home or self-care (01) | DRG 775 ==
LOC: YASAS 14:13 → Y3N 17:03
PROVIDERS: ADMIT Allergy & Immunology; ATTEND Family Medicine
PROC: HZ2ZZZZ Detoxification Services for Substance Abuse Treatment (ICD-10-PCS; principal; 2022-09-11)
DX: F10.230 Alcohol dependence with withdrawal, uncomplicated (principal); F16.20 Hallucinogen dependence, uncomplicated; F10.282 Alcohol dependence with alcohol-induced sleep disorder; F19.24 Other psychoactive substance dependence with psychoactive substance-induced mood disorder; G40.909 Epilepsy, unspecified, not intractable, without status epilepticus; J45.909 Unspecified asthma, uncomplicated; K21.9 Gastro-esophageal reflux disease without esophagitis; R47.01 Aphasia; R42 Dizziness and giddiness; Z20.822 Contact with and (suspected) exposure to COVID-19
CPT/HCPCS: 36415; 80053; 82140; 85027; 86780; 87811; C9803-CS; Q0162; U0003; U0005

== ENCOUNTER 2022-12-06 12:27 | Inpatient (IN) | payer OTHER ==
[2022-12-06 13:04] VITALS: BMI 24.1
[2022-12-06] MEDS ORDERED: hydrOXYzine PAMOATE 25 MG CAPSULE (FP) PO PRN (13:41)
[2022-12-06] MEDS ORDERED: NALOXONE HCL (KLOXXADO) 8 MG SPRAY NS PRN (13:41)
[2022-12-06] MEDS ORDERED: LOPERAMIDE HCL 2 MG CAPSULE PO PRN (13:41)
[2022-12-06] MEDS ORDERED: IBUPROFEN 400 MG TABLET (FP) PO PRN (13:41)
[2022-12-06] MEDS ORDERED: chlordiazePOXIDE HCL 25 MG CAPSULE PO PRN (13:41)
[2022-12-06] MEDS ORDERED: BENZOCAINE/MENTHOL (CHLORASEPTIC ) LOZENGE MM PRN (13:41)
[2022-12-06] MEDS ORDERED: NALOXONE HCL 0.4 MG/ML VIAL IM PRN (13:41)
[2022-12-06] MEDS ORDERED: DICYCLOMINE HCL 10 MG CAPSULE PO PRN (13:41)
[2022-12-06] MEDS ORDERED: guaiFENesin 600 MG TABLET.ER (FP) PO PRN (13:41)
[2022-12-06] MEDS ORDERED: ONDANSETRON *ODT* 4 MG TABLET SL PRN (13:41)
[2022-12-06] MEDS ORDERED: BENZONATATE 200 MG CAPSULE PO PRN (13:41)
[2022-12-06] MEDS ORDERED: MAGNESIUM HYDROX 2400MG/30ML ORAL SUSPENSION 30 ML CUP PO PRN (13:41)
[2022-12-06] MEDS ORDERED: ACETAMINOPHEN 325 MG TABLET (FP) PO PRN (13:41)
[2022-12-06] MEDS ORDERED: BISMUTH SUBSALICYLATE 262 MG/15 ML BTL PO PRN (13:41)
[2022-12-06] MEDS ORDERED: POLYETHYLENE GLYCOL (HEALTHYLAX) 3350 17 GM PACKET PO PRN (13:41)
[2022-12-06] MEDS ORDERED: MAG HYDROX/AL HYDROX/SIMETH 30 ML UNIT-DOSE CUP PO PRN (13:41)
[2022-12-06] MEDS ORDERED: PRENATAL VITAMINS W/ FOLIC ACID TABLET (FP) PO ONE (15:02)
[2022-12-06] MEDS: PRENATAL VITAMINS W/ FOLIC ACID TABLET (FP) PO SCH (15:03)
[2022-12-06] MEDS ORDERED: ALBUTEROL SO4 HFA INHALER IH PRN (15:42)
[2022-12-06 15:47] LABS: HEMATOCRIT 42.4 % (35.4-49); HEMOGLOBIN 14.8 GM/dL (11.7-16.9); MCH 33.1 pg (25.7-33.7); MEAN CELL VOLUME 94.6 fl (80-96); MEAN PLT VOLUME 8.3 fl (7.5-11.1); PLATELET COUNT 261 10^3/uL (134-434); RBC 4.47 M/mm3 (4.00-5.60); RDW 13.2 % (11.9-15.9); WHITE BLOOD COUNT 5.4 K/mm3 (4.0-10.0)
[2022-12-06 15:55] LABS: BLOOD UREA NITROGEN 13.9 mg/dL (7-18); CALCIUM 8.8 mg/dL (8.5-10.1)
[2022-12-06 15:57] LABS: ALBUMIN 4.4 g/dl (3.4-5.0)
[2022-12-06 15:59] LABS: CREATININE 1.2 mg/dL (0.55-1.3)
[2022-12-06 16:00] LABS: BILIRUBIN,TOTAL 0.3 mg/dL (0.2-1); TOT PROT 8.1 g/dl (6.4-8.2)
[2022-12-06] MEDS: chlordiazePOXIDE HCL 25 MG CAPSULE PO SCH ×2 (17:19→22:07)
[2022-12-06] MEDS: hydrOXYzine PAMOATE 25 MG CAPSULE (FP) PO PRN (17:58)
[2022-12-06] MEDS ORDERED: MELATONIN 5 MG TABLETS PO SCH (22:00)
[2022-12-06] MEDS: THIAMINE HCL 100 MG TABLET (FP) PO SCH (22:06)
[2022-12-06] MEDS: levETIRAcetam 500 MG TABLET (FP) PO SCH (22:06)
[2022-12-06] MEDS: MELATONIN 5 MG TABLETS PO PRN (22:07)
[2022-12-07] MEDS: chlordiazePOXIDE HCL 25 MG CAPSULE PO SCH ×4 (05:31→22:18)
[2022-12-07] MEDS: PRENATAL VITAMINS W/ FOLIC ACID TABLET (FP) PO SCH (10:14)
[2022-12-07] MEDS: levETIRAcetam 500 MG TABLET (FP) PO SCH ×2 (10:14→22:18)
[2022-12-07] MEDS: METHOCARBAMOL 500 MG TABLET PO PRN (12:37)
[2022-12-07] MEDS: hydrOXYzine PAMOATE 25 MG CAPSULE (FP) PO PRN (12:37)
[2022-12-07] MEDS: MELATONIN 5 MG TABLETS PO PRN (22:18)
[2022-12-07] MEDS: THIAMINE HCL 100 MG TABLET (FP) PO SCH (22:18)
[2022-12-08] MEDS: hydrOXYzine PAMOATE 25 MG CAPSULE (FP) PO PRN ×2 (03:01→17:52)
[2022-12-08] MEDS: chlordiazePOXIDE HCL 25 MG CAPSULE PO SCH ×4 (05:48→22:15)
[2022-12-08] MEDS: levETIRAcetam 500 MG TABLET (FP) PO SCH ×2 (10:11→22:15)
[2022-12-08] MEDS: TETRAHYDROZOLINE HCL EYE DROPS OU PRN (10:11)
[2022-12-08] MEDS: PRENATAL VITAMINS W/ FOLIC ACID TABLET (FP) PO SCH (10:11)
[2022-12-08] MEDS: IBUPROFEN 600 MG TABLET (FP) PO PRN (12:59)
[2022-12-08] MEDS: MELATONIN 5 MG TABLETS PO PRN (22:15)
[2022-12-08] MEDS: THIAMINE HCL 100 MG TABLET (FP) PO SCH (22:15)
[2022-12-09] MEDS ORDERED: chlordiazePOXIDE HCL 10 MG CAPSULE PO PRN
[2022-12-09] MEDS: chlordiazePOXIDE HCL 10 MG CAPSULE PO SCH ×4 (05:38→22:22)
[2022-12-09] MEDS: PRENATAL VITAMINS W/ FOLIC ACID TABLET (FP) PO SCH (10:11)
[2022-12-09] MEDS: levETIRAcetam 500 MG TABLET (FP) PO SCH ×2 (10:11→22:22)
[2022-12-09] MEDS: TETRAHYDROZOLINE HCL EYE DROPS OU PRN (10:11)
[2022-12-09] MEDS: METHOCARBAMOL 500 MG TABLET PO PRN ×2 (10:11→22:22)
[2022-12-09] MEDS: hydrOXYzine PAMOATE 25 MG CAPSULE (FP) PO PRN ×2 (10:11→22:22)
[2022-12-09] MEDS: IBUPROFEN 600 MG TABLET (FP) PO PRN (10:12)
[2022-12-09] MEDS: MELATONIN 5 MG TABLETS PO PRN (22:21)
[2022-12-09] MEDS: THIAMINE HCL 100 MG TABLET (FP) PO SCH (22:22)
[2022-12-10] MEDS: chlordiazePOXIDE HCL 10 MG CAPSULE PO SCH ×2 (05:35→17:11)
[2022-12-10] MEDS: METHOCARBAMOL 500 MG TABLET PO PRN ×2 (10:24→22:07)
[2022-12-10] MEDS: levETIRAcetam 500 MG TABLET (FP) PO SCH ×2 (10:24→22:07)
[2022-12-10] MEDS: PRENATAL VITAMINS W/ FOLIC ACID TABLET (FP) PO SCH (10:24)
[2022-12-10] MEDS: hydrOXYzine PAMOATE 25 MG CAPSULE (FP) PO PRN ×2 (10:24→22:07)
[2022-12-10] MEDS: IBUPROFEN 600 MG TABLET (FP) PO PRN (10:26)
[2022-12-10] MEDS ORDERED: cloNIDine HCL 0.1 MG TABLET PO PRN (15:55)
[2022-12-10] MEDS: THIAMINE HCL 100 MG TABLET (FP) PO SCH (22:07)
[2022-12-10] MEDS: MELATONIN 5 MG TABLETS PO PRN (22:07)
[2022-12-11] MEDS ORDERED: chlordiazePOXIDE HCL 10 MG CAPSULE PO ONE (05:00)
[2022-12-11 06:22] VITALS: RESP 18
[2022-12-11] MEDS: levETIRAcetam 500 MG TABLET (FP) PO SCH (09:04)
[2022-12-11] MEDS: PRENATAL VITAMINS W/ FOLIC ACID TABLET (FP) PO SCH (09:04)
[2022-12-11 09:33] VITALS: BP 127/72; PULSE 81; TEMP 97.6
== END 2022-12-11 09:15 | disposition home or self-care (01) | DRG 775 ==
LOC: YASAS 12:27 → Y6N 14:36
PROVIDERS: ADMIT Allergy & Immunology; ATTEND Surgery
PROC: HZ2ZZZZ Detoxification Services for Substance Abuse Treatment (ICD-10-PCS; principal; 2022-12-06)
DX: F10.230 Alcohol dependence with withdrawal, uncomplicated (principal); F19.282 Other psychoactive substance dependence with psychoactive substance-induced sleep disorder; F10.280 Alcohol dependence with alcohol-induced anxiety disorder; F19.24 Other psychoactive substance dependence with psychoactive substance-induced mood disorder; F10.220 Alcohol dependence with intoxication, uncomplicated; F32.A Depression, unspecified; J45.909 Unspecified asthma, uncomplicated; R47.01 Aphasia; Z20.822 Contact with and (suspected) exposure to COVID-19; Z86.69 Personal history of other diseases of the nervous system and sense organs
CPT/HCPCS: 36415; 80053; 82140; 82962; 85027; 86780; 87811; C9803-CS; U0003; U0005

== ENCOUNTER 2023-02-01 09:03 | Inpatient (IN) | payer OTHER ==
[2023-02-01 09:32] VITALS: BMI 26.6
[2023-02-01] MEDS ORDERED: guaiFENesin 600 MG TABLET.ER (FP) PO PRN (09:54)
[2023-02-01] MEDS ORDERED: DICYCLOMINE HCL 10 MG CAPSULE PO PRN (09:54)
[2023-02-01] MEDS ORDERED: LOPERAMIDE HCL 2 MG CAPSULE PO PRN (09:54)
[2023-02-01] MEDS ORDERED: NALOXONE HCL 0.4 MG/ML VIAL IM PRN (09:54)
[2023-02-01] MEDS ORDERED: MAGNESIUM HYDROX 2400MG/30ML ORAL SUSPENSION 30 ML CUP PO PRN (09:54)
[2023-02-01] MEDS ORDERED: METHOCARBAMOL 500 MG TABLET PO PRN (09:54)
[2023-02-01] MEDS ORDERED: AMMONIUM LACTATE 12% LOTION 225 GM BOTTLE TP PRN (09:54)
[2023-02-01] MEDS ORDERED: BISMUTH SUBSALICYLATE 262 MG/15 ML BTL PO PRN (09:54)
[2023-02-01] MEDS ORDERED: IBUPROFEN 400 MG TABLET (FP) PO PRN (09:54)
[2023-02-01] MEDS ORDERED: COLLOIDAL OATMEAL 1 BAR EACH TP PRN (09:54)
[2023-02-01] MEDS ORDERED: ONDANSETRON *ODT* 4 MG TABLET SL PRN (09:54)
[2023-02-01] MEDS ORDERED: BENZOCAINE/MENTHOL (CHLORASEPTIC ) LOZENGE MM PRN (09:54)
[2023-02-01] MEDS ORDERED: NICOTINE 10 MG CARTRIDGE (INHALER) IH PRN (09:54)
[2023-02-01] MEDS ORDERED: MAG HYDROX/AL HYDROX/SIMETH 30 ML UNIT-DOSE CUP PO PRN (09:54)
[2023-02-01] MEDS ORDERED: BENZONATATE 200 MG CAPSULE PO PRN (09:54)
[2023-02-01] MEDS ORDERED: ACETAMINOPHEN 325 MG TABLET (FP) PO PRN (09:54)
[2023-02-01] MEDS ORDERED: POLYETHYLENE GLYCOL (HEALTHYLAX) 3350 17 GM PACKET PO PRN (09:54)
[2023-02-01] MEDS ORDERED: NALOXONE HCL (KLOXXADO) 8 MG SPRAY NS PRN (09:54)
[2023-02-01] MEDS ORDERED: ALBUTEROL SO4 HFA INHALER IH PRN (09:57)
[2023-02-01] MEDS ORDERED: MECLIZINE HCL 25 MG TABLET (FP) PO PRN (09:57)
[2023-02-01] MEDS: levETIRAcetam 500 MG TABLET (FP) PO SCH ×2 (10:26→22:13)
[2023-02-01] MEDS: PRENATAL VITAMINS W/ FOLIC ACID TABLET (FP) PO SCH (10:26)
[2023-02-01] MEDS ORDERED: PRENATAL VITAMINS W/ FOLIC ACID TABLET (FP) PO ONE (10:27)
[2023-02-01] MEDS: hydrOXYzine PAMOATE 25 MG CAPSULE (FP) PO PRN ×2 (11:51→22:16)
[2023-02-01 13:46] LABS: HEMATOCRIT 38.9 % (35.4-49); HEMOGLOBIN 13.3 GM/dL (11.7-16.9); MCH 31.8 pg (25.7-33.7); MCHC 34.2 g/dl (32.0-35.9); MEAN CELL VOLUME 92.9 fl (80-96); MEAN PLT VOLUME 8.5 fl (7.5-11.1); PLATELET COUNT 232 10^3/uL (134-434); RBC 4.19 M/mm3 (4.00-5.60); RDW 13.6 % (11.9-15.9)
[2023-02-01 14:06] LABS: POTASSIUM 4.4 mmol/L (3.5-5.1)
[2023-02-01 14:09] LABS: ALBUMIN 4.4 g/dl (3.4-5.0); CALCIUM 9.3 mg/dL (8.5-10.1)
[2023-02-01 14:12] LABS: CREATININE 1.1 mg/dL (0.55-1.3)
[2023-02-01 14:14] LABS: BILIRUBIN,TOTAL 0.3 mg/dL (0.2-1); TOT PROT 7.8 g/dl (6.4-8.2)
[2023-02-01] MEDS ORDERED: chlordiazePOXIDE HCL 25 MG CAPSULE PO PRN (16:06)
[2023-02-01] MEDS: chlordiazePOXIDE HCL 25 MG CAPSULE PO SCH ×2 (17:33→22:13)
[2023-02-01] MEDS ORDERED: LACTULOSE 20 GM/30 ML UDC (FOR ORAL USE ONLY) PO PRN (18:29)
[2023-02-01] MEDS: THIAMINE HCL 100 MG TABLET (FP) PO SCH (22:13)
[2023-02-01] MEDS: MELATONIN 5 MG TABLETS PO SCH (22:13)
[2023-02-01] MEDS: GABAPENTIN 100 MG CAPSULE PO SCH (22:13)
[2023-02-02] MEDS: GABAPENTIN 100 MG CAPSULE PO SCH ×3 (05:34→22:18)
[2023-02-02] MEDS: chlordiazePOXIDE HCL 25 MG CAPSULE PO SCH ×4 (05:34→22:19)
[2023-02-02] MEDS: PRENATAL VITAMINS W/ FOLIC ACID TABLET (FP) PO SCH (10:13)
[2023-02-02] MEDS: levETIRAcetam 500 MG TABLET (FP) PO SCH ×2 (10:13→22:19)
[2023-02-02] MEDS: hydrOXYzine PAMOATE 25 MG CAPSULE (FP) PO PRN (10:27)
[2023-02-02] MEDS: LACTULOSE 20 GM/30 ML UDC (FOR ORAL USE ONLY) PO SCH ×2 (13:35→22:18)
[2023-02-02] MEDS: THIAMINE HCL 100 MG TABLET (FP) PO SCH (22:18)
[2023-02-02] MEDS: MELATONIN 5 MG TABLETS PO SCH (22:19)
[2023-02-02] MEDS: MIRTAZAPINE 15 MG TABLET (FP) PO SCH (22:19)
[2023-02-03] MEDS: GABAPENTIN 100 MG CAPSULE PO SCH ×3 (05:32→22:29)
[2023-02-03] MEDS: LACTULOSE 20 GM/30 ML UDC (FOR ORAL USE ONLY) PO SCH ×3 (05:33→22:29)
[2023-02-03] MEDS: chlordiazePOXIDE HCL 25 MG CAPSULE PO SCH ×4 (05:33→22:32)
[2023-02-03] MEDS: IBUPROFEN 600 MG TABLET (FP) PO PRN ×2 (05:35→15:13)
[2023-02-03] MEDS: PRENATAL VITAMINS W/ FOLIC ACID TABLET (FP) PO SCH (10:29)
[2023-02-03] MEDS: levETIRAcetam 500 MG TABLET (FP) PO SCH ×2 (10:29→22:30)
[2023-02-03] MEDS: hydrOXYzine PAMOATE 25 MG CAPSULE (FP) PO PRN (10:31)
[2023-02-03] MEDS: MELATONIN 5 MG TABLETS PO SCH (22:29)
[2023-02-03] MEDS: THIAMINE HCL 100 MG TABLET (FP) PO SCH (22:29)
[2023-02-03] MEDS: MIRTAZAPINE 15 MG TABLET (FP) PO SCH (22:30)
[2023-02-04] MEDS ORDERED: chlordiazePOXIDE HCL 10 MG CAPSULE PO PRN
[2023-02-04] MEDS: GABAPENTIN 100 MG CAPSULE PO SCH ×3 (06:00→22:13)
[2023-02-04] MEDS: chlordiazePOXIDE HCL 10 MG CAPSULE PO SCH ×4 (06:00→22:13)
[2023-02-04] MEDS: LACTULOSE 20 GM/30 ML UDC (FOR ORAL USE ONLY) PO SCH ×3 (06:00→22:14)
[2023-02-04] MEDS: hydrOXYzine PAMOATE 25 MG CAPSULE (FP) PO PRN ×2 (06:12→10:22)
[2023-02-04] MEDS: PRENATAL VITAMINS W/ FOLIC ACID TABLET (FP) PO SCH (10:21)
[2023-02-04] MEDS: levETIRAcetam 500 MG TABLET (FP) PO SCH ×2 (10:22→22:13)
[2023-02-04] MEDS: IBUPROFEN 600 MG TABLET (FP) PO PRN (10:51)
[2023-02-04] MEDS: MIRTAZAPINE 15 MG TABLET (FP) PO SCH (22:13)
[2023-02-04] MEDS: MELATONIN 5 MG TABLETS PO SCH (22:13)
[2023-02-04] MEDS: THIAMINE HCL 100 MG TABLET (FP) PO SCH (22:13)
[2023-02-05] MEDS: GABAPENTIN 100 MG CAPSULE PO SCH ×3 (05:48→22:03)
[2023-02-05] MEDS: LACTULOSE 20 GM/30 ML UDC (FOR ORAL USE ONLY) PO SCH ×3 (05:48→22:03)
[2023-02-05] MEDS: chlordiazePOXIDE HCL 10 MG CAPSULE PO SCH ×2 (05:49→17:40)
[2023-02-05] MEDS: IBUPROFEN 600 MG TABLET (FP) PO PRN (08:29)
[2023-02-05] MEDS: levETIRAcetam 500 MG TABLET (FP) PO SCH ×2 (10:41→22:03)
[2023-02-05] MEDS: PRENATAL VITAMINS W/ FOLIC ACID TABLET (FP) PO SCH (10:41)
[2023-02-05] MEDS: hydrOXYzine PAMOATE 25 MG CAPSULE (FP) PO PRN (10:43)
[2023-02-05] MEDS: MELATONIN 5 MG TABLETS PO SCH (22:03)
[2023-02-05] MEDS: MIRTAZAPINE 15 MG TABLET (FP) PO SCH (22:03)
[2023-02-05] MEDS: THIAMINE HCL 100 MG TABLET (FP) PO SCH (22:03)
[2023-02-06] MEDS ORDERED: chlordiazePOXIDE HCL 10 MG CAPSULE PO ONE (05:00)
[2023-02-06] MEDS: LACTULOSE 20 GM/30 ML UDC (FOR ORAL USE ONLY) PO SCH (05:38)
[2023-02-06] MEDS: GABAPENTIN 100 MG CAPSULE PO SCH (05:38)
[2023-02-06 08:38] VITALS: BP 138/82; PULSE 76; RESP 18; TEMP 97.5
[2023-02-06] MEDS: levETIRAcetam 500 MG TABLET (FP) PO SCH (09:26)
[2023-02-06] MEDS: PRENATAL VITAMINS W/ FOLIC ACID TABLET (FP) PO SCH (09:26)
== END 2023-02-06 09:58 | disposition other institution (70) | DRG 775 ==
LOC: YASAS 09:03 → Y3N 09:53
PROVIDERS: ADMIT Allergy & Immunology; ATTEND Surgery
PROC: HZ2ZZZZ Detoxification Services for Substance Abuse Treatment (ICD-10-PCS; principal; 2023-02-01)
DX: F10.230 Alcohol dependence with withdrawal, uncomplicated (principal); F19.24 Other psychoactive substance dependence with psychoactive substance-induced mood disorder; F41.9 Anxiety disorder, unspecified; F32.A Depression, unspecified; E72.20 Disorder of urea cycle metabolism, unspecified; G40.909 Epilepsy, unspecified, not intractable, without status epilepticus; J45.909 Unspecified asthma, uncomplicated; K21.9 Gastro-esophageal reflux disease without esophagitis
CPT/HCPCS: 36415; 80053; 82140; 85027; 86780; 87635

== ENCOUNTER 2023-07-09 14:22 | Inpatient (IN) | payer OTHER ==
[2023-07-09 15:00] VITALS: BMI 27.9
[2023-07-09] MEDS ORDERED: MECLIZINE HCL 25 MG TABLET (FP) PO PRN (19:31)
[2023-07-09] MEDS ORDERED: ALBUTEROL SO4 HFA INHALER IH PRN (19:31)
[2023-07-09] MEDS ORDERED: ACETAMINOPHEN 325 MG TABLET (FP) PO PRN (19:47)
[2023-07-09] MEDS ORDERED: BENZOCAINE/MENTHOL (CHLORASEPTIC ) LOZENGE MM PRN (19:47)
[2023-07-09] MEDS ORDERED: MAG HYDROX/AL HYDROX/SIMETH 30 ML UNIT-DOSE CUP PO PRN (19:47)
[2023-07-09] MEDS ORDERED: IBUPROFEN 400 MG TABLET (FP) PO PRN (19:47)
[2023-07-09] MEDS ORDERED: POLYETHYLENE GLYCOL (HEALTHYLAX) 3350 17 GM PACKET PO PRN (19:47)
[2023-07-09] MEDS ORDERED: NALOXONE HCL (KLOXXADO) 8 MG SPRAY NS PRN (19:47)
[2023-07-09] MEDS ORDERED: LOPERAMIDE HCL 2 MG CAPSULE PO PRN (19:47)
[2023-07-09] MEDS ORDERED: guaiFENesin 600 MG TABLET.ER (FP) PO PRN (19:47)
[2023-07-09] MEDS ORDERED: IBUPROFEN 600 MG TABLET (FP) PO PRN (19:47)
[2023-07-09] MEDS ORDERED: COLLOIDAL OATMEAL 1 BAR EACH TP PRN (19:47)
[2023-07-09] MEDS ORDERED: BENZONATATE 200 MG CAPSULE PO PRN (19:47)
[2023-07-09] MEDS ORDERED: NALOXONE HCL 0.4 MG/ML VIAL IM PRN (19:47)
[2023-07-09] MEDS ORDERED: P-EPHED 60MG/TRIPROLIDI 2.5MG TABLET PO PRN (19:47)
[2023-07-09] MEDS ORDERED: MAGNESIUM HYDROX 2400MG/30ML ORAL SUSPENSION 30 ML CUP PO PRN (19:47)
[2023-07-09] MEDS: levETIRAcetam 500 MG TABLET (FP) PO SCH (21:53)
[2023-07-09] MEDS: GABAPENTIN 100 MG CAPSULE PO SCH (21:54)
[2023-07-09] MEDS: MELATONIN 5 MG TABLETS PO SCH (21:54)
[2023-07-09] MEDS: THIAMINE HCL 100 MG TABLET (FP) PO SCH (21:55)
[2023-07-09] MEDS ORDERED: MIRTAZAPINE 15 MG TABLET (FP) PO ONE (22:00)
[2023-07-10] MEDS: GABAPENTIN 100 MG CAPSULE PO SCH ×3 (06:24→21:08)
[2023-07-10 06:49] VITALS: RESP 18
[2023-07-10] MEDS: levETIRAcetam 500 MG TABLET (FP) PO SCH ×2 (09:49→21:08)
[2023-07-10] MEDS: hydrOXYzine PAMOATE 25 MG CAPSULE (FP) PO PRN (09:49)
[2023-07-10] MEDS: PRENATAL VITAMINS W/ FOLIC ACID TABLET (FP) PO SCH (09:49)
[2023-07-10 10:31] LABS: HEMATOCRIT 42.2 % (35.4-49); HEMOGLOBIN 14.6 GM/dL (11.7-16.9); MCH 32.2 pg (25.7-33.7); MCHC 34.5 g/dl (32.0-35.9); MEAN CELL VOLUME 93.5 fl (80-96); MEAN PLT VOLUME 9.1 fl (7.5-11.1); PLATELET COUNT 225 10^3/uL (134-434); RBC 4.52 M/mm3 (4.00-5.60); RDW 13.6 % (11.9-15.9); WHITE BLOOD COUNT 6.6 K/mm3 (4.0-10.0)
[2023-07-10 10:43] LABS: CHLORIDE 106 mmol/L (98-107); POTASSIUM 4.1 mmol/L (3.5-5.1); SODIUM 140 mmol/L (136-145)
[2023-07-10 10:43] LABS: PH,URINE 5.5 (5.0-8.0); URINE APPEARANCE CLEAR; URINE BILIRUBIN NEGATIVE (NEGATIVE); URINE COLOR YELLOW; URINE GLUCOSE (UA) NEGATIVE (NEGATIVE); URINE KETONE NEGATIVE (NEGATIVE); URINE LEUK ESTERASE NEGATIVE (NEGATIVE); URINE NITRITE NEGATIVE (NEGATIVE); URINE PROTEIN NEGATIVE (NEGATIVE)
[2023-07-10 11:01] LABS: ANION GAP 8 mmol/L (4-13); BLOOD UREA NITROGEN 17.1 mg/dL (7-18); CALCIUM 8.6 mg/dL (8.5-10.1); CO2 25 mmol/L (21-32); GLUCOSE,RANDOM 120 mg/dL (74-106)
[2023-07-10 11:04] LABS: CREATININE 1.4 mg/dL (0.55-1.3); SGOT/AST 41 U/L (15-37); SGPT/ALT 85 U/L (13-61)
[2023-07-10 11:06] LABS: BILIRUBIN,TOTAL 0.7 mg/dL (0.2-1); TOT PROT 7.4 g/dl (6.4-8.2)
[2023-07-10 11:07] LABS: ALK PHOS 76 U/L (45-117)
[2023-07-10] MEDS: METHOCARBAMOL 500 MG TABLET PO PRN (14:25)
[2023-07-10] MEDS: MELATONIN 5 MG TABLETS PO SCH (21:08)
[2023-07-10] MEDS: MIRTAZAPINE 30 MG TABLET PO SCH (21:08)
[2023-07-10] MEDS: THIAMINE HCL 100 MG TABLET (FP) PO SCH (21:08)
[2023-07-11] MEDS: GABAPENTIN 100 MG CAPSULE PO SCH ×3 (06:30→21:30)
[2023-07-11] MEDS: levETIRAcetam 500 MG TABLET (FP) PO SCH ×2 (09:38→21:30)
[2023-07-11] MEDS: PRENATAL VITAMINS W/ FOLIC ACID TABLET (FP) PO SCH (09:38)
[2023-07-11] MEDS: hydrOXYzine PAMOATE 25 MG CAPSULE (FP) PO PRN (09:39)
[2023-07-11] MEDS: METHOCARBAMOL 500 MG TABLET PO PRN ×2 (09:39→14:49)
[2023-07-11] MEDS: THIAMINE HCL 100 MG TABLET (FP) PO SCH (21:30)
[2023-07-11] MEDS: MELATONIN 5 MG TABLETS PO SCH (21:30)
[2023-07-11] MEDS: MIRTAZAPINE 30 MG TABLET PO SCH (21:30)
[2023-07-12] MEDS: GABAPENTIN 100 MG CAPSULE PO SCH ×3 (06:14→21:30)
[2023-07-12] MEDS: levETIRAcetam 500 MG TABLET (FP) PO SCH ×2 (09:46→21:30)
[2023-07-12] MEDS: PRENATAL VITAMINS W/ FOLIC ACID TABLET (FP) PO SCH (09:46)
[2023-07-12] MEDS: METHOCARBAMOL 500 MG TABLET PO PRN (09:47)
[2023-07-12] MEDS: hydrOXYzine PAMOATE 25 MG CAPSULE (FP) PO PRN (09:47)
[2023-07-12] MEDS: THIAMINE HCL 100 MG TABLET (FP) PO SCH (21:30)
[2023-07-12] MEDS: MELATONIN 5 MG TABLETS PO SCH (21:30)
[2023-07-12] MEDS: MIRTAZAPINE 30 MG TABLET PO SCH (21:30)
[2023-07-13] MEDS: GABAPENTIN 100 MG CAPSULE PO SCH ×3 (06:26→21:23)
[2023-07-13] MEDS: PRENATAL VITAMINS W/ FOLIC ACID TABLET (FP) PO SCH (09:46)
[2023-07-13] MEDS: levETIRAcetam 500 MG TABLET (FP) PO SCH ×2 (09:46→21:23)
[2023-07-13] MEDS: METHOCARBAMOL 500 MG TABLET PO PRN ×2 (09:48→16:53)
[2023-07-13] MEDS: MELATONIN 5 MG TABLETS PO SCH (21:23)
[2023-07-13] MEDS: MIRTAZAPINE 30 MG TABLET PO SCH (21:23)
[2023-07-13] MEDS: THIAMINE HCL 100 MG TABLET (FP) PO SCH (21:23)
[2023-07-14] MEDS: GABAPENTIN 100 MG CAPSULE PO SCH ×3 (06:53→21:41)
[2023-07-14] MEDS: hydrOXYzine PAMOATE 25 MG CAPSULE (FP) PO PRN ×2 (06:54→21:42)
[2023-07-14] MEDS: METHOCARBAMOL 500 MG TABLET PO PRN ×2 (06:55→16:43)
[2023-07-14] MEDS: levETIRAcetam 500 MG TABLET (FP) PO SCH ×2 (09:59→21:41)
[2023-07-14] MEDS: PRENATAL VITAMINS W/ FOLIC ACID TABLET (FP) PO SCH (09:59)
[2023-07-14] MEDS: MIRTAZAPINE 30 MG TABLET PO SCH (21:41)
[2023-07-14] MEDS: THIAMINE HCL 100 MG TABLET (FP) PO SCH (21:41)
[2023-07-14] MEDS: MELATONIN 5 MG TABLETS PO SCH (21:41)
[2023-07-15 07:08] VITALS: BP 122/73; PULSE 77; TEMP 97.9
[2023-07-15] MEDS: GABAPENTIN 100 MG CAPSULE PO SCH ×2 (07:10→14:45)
[2023-07-15] MEDS: hydrOXYzine PAMOATE 25 MG CAPSULE (FP) PO PRN ×2 (07:11→14:46)
[2023-07-15] MEDS: PRENATAL VITAMINS W/ FOLIC ACID TABLET (FP) PO SCH (09:52)
[2023-07-15] MEDS: levETIRAcetam 500 MG TABLET (FP) PO SCH (09:52)
[2023-07-15] MEDS: METHOCARBAMOL 500 MG TABLET PO PRN (09:53)
== END 2023-07-15 16:30 | disposition left against medical advice (07) | DRG 770 ==
LOC: YASAS 14:22 → Y5N 20:29
PROVIDERS: ADMIT Allergy & Immunology; ATTEND Psychiatry & Neurology Pain Medicine
PROC: HZ42ZZZ Group Counseling for Substance Abuse Treatment, Cognitive-Behavioral (ICD-10-PCS; principal; 2023-07-09)
DX: F10.20 Alcohol dependence, uncomplicated (principal); F10.280 Alcohol dependence with alcohol-induced anxiety disorder; F10.282 Alcohol dependence with alcohol-induced sleep disorder; J45.909 Unspecified asthma, uncomplicated; K21.9 Gastro-esophageal reflux disease without esophagitis; Z86.69 Personal history of other diseases of the nervous system and sense organs
CPT/HCPCS: 36415; 80053; 80307; 81003; 85027; 86780; 87635

== ENCOUNTER 2023-10-16 12:58 | Inpatient (IN) | payer OTHER ==
[2023-10-16 14:06] VITALS: BMI 30.1
[2023-10-16] MEDS ORDERED: LOPERAMIDE HCL 2 MG CAPSULE PO PRN (16:47)
[2023-10-16] MEDS ORDERED: MAGNESIUM HYDROX 2400MG/30ML ORAL SUSPENSION 30 ML CUP PO PRN (16:47)
[2023-10-16] MEDS ORDERED: BENZOCAINE/MENTHOL (CHLORASEPTIC ) LOZENGE MM PRN (16:47)
[2023-10-16] MEDS ORDERED: POLYETHYLENE GLYCOL (HEALTHYLAX) 3350 17 GM PACKET PO PRN (16:47)
[2023-10-16] MEDS ORDERED: BENZONATATE 200 MG CAPSULE PO PRN (16:47)
[2023-10-16] MEDS ORDERED: NALOXONE HCL 0.4 MG/ML VIAL IM PRN (16:47)
[2023-10-16] MEDS ORDERED: NALOXONE HCL (KLOXXADO) 8 MG SPRAY NS PRN (16:47)
[2023-10-16] MEDS ORDERED: ACETAMINOPHEN 325 MG TABLET (FP) PO PRN (16:47)
[2023-10-16] MEDS ORDERED: MAG HYDROX/AL HYDROX/SIMETH 30 ML UNIT-DOSE CUP PO PRN (16:47)
[2023-10-16] MEDS ORDERED: guaiFENesin 600 MG TABLET.ER (FP) PO PRN (16:47)
[2023-10-16] MEDS: THIAMINE HCL 100 MG TABLET (FP) PO SCH (21:18)
[2023-10-16] MEDS: MELATONIN 5 MG TABLETS PO SCH (21:18)
[2023-10-17] MEDS: PRENATAL VITAMINS W/ FOLIC ACID TABLET (FP) PO SCH (09:34)
[2023-10-17] MEDS ORDERED: hydrOXYzine PAMOATE 50 MG CAPSULE (FP) PO PRN (09:57)
[2023-10-17] MEDS ORDERED: ALBUTEROL SO4 HFA INHALER IH PRN (09:57)
[2023-10-17] MEDS: levETIRAcetam 500 MG TABLET (FP) PO SCH (10:17)
[2023-10-17 11:59] LABS: URINE APPEARANCE CLEAR; URINE BILIRUBIN NEGATIVE (NEGATIVE); URINE COLOR YELLOW; URINE GLUCOSE (UA) NEGATIVE (NEGATIVE); URINE KETONE NEGATIVE (NEGATIVE); URINE LEUK ESTERASE NEGATIVE (NEGATIVE); URINE NITRITE NEGATIVE (NEGATIVE); URINE PROTEIN NEGATIVE (NEGATIVE); URINE UROBILINOGEN 0.2 mg/dL (0.2-1.0)
[2023-10-17 12:39] LABS: CHLORIDE 106 mmol/L (98-107); POTASSIUM 4.1 mmol/L (3.5-5.1); SODIUM 141 mmol/L (136-145)
[2023-10-17 12:48] LABS: ALBUMIN 4.1 g/dl (3.4-5.0); ANION GAP 10 mmol/L (4-13); BLOOD UREA NITROGEN 15.4 mg/dL (7-18); CALCIUM 9.4 mg/dL (8.5-10.1); CO2 26 mmol/L (21-32); GLUCOSE,RANDOM 98 mg/dL (74-106)
[2023-10-17 12:49] LABS: HEMATOCRIT 42.4 % (35.4-49); HEMOGLOBIN 14.8 GM/dL (11.7-16.9); MCHC 34.8 g/dl (32.0-35.9); MEAN CELL VOLUME 94.7 fl (80-96); MEAN PLT VOLUME 9.5 fl (7.5-11.1); PLATELET COUNT 228 10^3/uL (134-434); RBC 4.48 M/mm3 (4.00-5.60); RDW 15.4 % (11.9-15.9); WHITE BLOOD COUNT 5.9 K/mm3 (4.0-10.0)
[2023-10-17 12:51] LABS: CREATININE 1.1 mg/dL (0.55-1.3); SGPT/ALT 59 U/L (13-61)
[2023-10-17 12:52] LABS: BILIRUBIN,TOTAL 0.7 mg/dL (0.2-1); SGOT/AST 36 U/L (15-37); TOT PROT 7.7 g/dl (6.4-8.2)
[2023-10-17 12:54] LABS: ALK PHOS 70 U/L (45-117)
[2023-10-17] MEDS: GABAPENTIN 100 MG CAPSULE PO SCH (13:14)
[2023-10-17] MEDS: MIRTAZAPINE 30 MG TABLET PO SCH (21:08)
[2023-10-17] MEDS ORDERED: PATIENT'S OWN MEDICATION (NON-FORMULARY) (Prazosin Hcl 2 MG Capsule) PO SCH (22:00)
[2023-10-20] MEDS: IBUPROFEN 600 MG TABLET (FP) PO PRN (07:09)
[2023-10-22] MEDS: LORATADINE 10 MG TABLET PO SCH (11:52)
[2023-10-23] MEDS: hydrOXYzine PAMOATE 25 MG CAPSULE (FP) PO PRN (06:14)
[2023-10-23] MEDS: IBUPROFEN 400 MG TABLET (FP) PO PRN (06:16)
[2023-10-23] MEDS: TETRAHYDROZOLINE HCL EYE DROPS OU PRN (19:34)
[2023-10-25] MEDS ORDERED: METHOCARBAMOL 500 MG TABLET PO PRN (16:07)
[2023-10-26] MEDS: hydrOXYzine PAMOATE 25 MG CAPSULE (FP) PO PRN (06:00)
[2023-10-30 06:23] VITALS: BP 130/82; PULSE 78; RESP 17; TEMP 97.3
== END 2023-10-30 09:57 | disposition home or self-care (01) | DRG 772 ==
LOC: YASAS 12:58 → Y3W 18:35
PROVIDERS: ADMIT Allergy & Immunology; ATTEND Psychiatry & Neurology Pain Medicine
PROC: HZ42ZZZ Group Counseling for Substance Abuse Treatment, Cognitive-Behavioral (ICD-10-PCS; principal; 2023-10-16)
DX: F10.20 Alcohol dependence, uncomplicated (principal); F41.9 Anxiety disorder, unspecified; G47.00 Insomnia, unspecified; H04.123 Dry eye syndrome of bilateral lacrimal glands; J45.909 Unspecified asthma, uncomplicated; K21.9 Gastro-esophageal reflux disease without esophagitis
CPT/HCPCS: 36415; 80053; 80305; 80307; 81003; 85027; 86780; 87635; 87811; 93005; 93010

== ENCOUNTER 2024-02-06 12:00 | Inpatient (IN) | payer OTHER ==
[2024-02-06 12:26] VITALS: BMI 27.6
[2024-02-06] MEDS ORDERED: POLYETHYLENE GLYCOL (HEALTHYLAX) 3350 17 GM PACKET PO PRN (12:43)
[2024-02-06] MEDS ORDERED: NALOXONE (NARCAN) HCL 4 MG/0.1 ML SPRAY NS PRN (12:43)
[2024-02-06] MEDS ORDERED: hydrOXYzine PAMOATE 25 MG CAPSULE (FP) PO PRN (12:43)
[2024-02-06] MEDS ORDERED: guaiFENesin 600 MG TABLET.ER (FP) PO PRN (12:43)
[2024-02-06] MEDS ORDERED: BENZONATATE 200 MG CAPSULE PO PRN (12:43)
[2024-02-06] MEDS ORDERED: NALOXONE HCL 0.4 MG/ML VIAL IM PRN (12:43)
[2024-02-06] MEDS ORDERED: IBUPROFEN 600 MG TABLET (FP) PO PRN (12:43)
[2024-02-06] MEDS ORDERED: MAGNESIUM HYDROX 2400MG/30ML ORAL SUSPENSION 30 ML CUP PO PRN (12:43)
[2024-02-06] MEDS ORDERED: BISMUTH SUBSALICYLATE 524 MG/30 ML PO PRN (12:43)
[2024-02-06] MEDS ORDERED: LOPERAMIDE HCL 2 MG CAPSULE PO PRN (12:43)
[2024-02-06] MEDS ORDERED: MAG HYDROX/AL HYDROX/SIMETH 30 ML UNIT-DOSE CUP PO PRN (12:43)
[2024-02-06] MEDS ORDERED: BENZOCAINE/MENTHOL (CHLORASEPTIC ) LOZENGE MM PRN (12:43)
[2024-02-06] MEDS ORDERED: ACETAMINOPHEN 325 MG TABLET (FP) PO PRN (12:43)
[2024-02-06] MEDS ORDERED: chlordiazePOXIDE HCL 25 MG CAPSULE PO PRN (12:43)
[2024-02-06] MEDS ORDERED: ONDANSETRON *ODT* 4 MG TABLET SL PRN (12:43)
[2024-02-06] MEDS ORDERED: DICYCLOMINE HCL 10 MG CAPSULE PO PRN (12:43)
[2024-02-06] MEDS ORDERED: ALBUTEROL SO4 HFA INHALER IH PRN (12:45)
[2024-02-06] MEDS: PRENATAL VITAMINS W/ FOLIC ACID TABLET (FP) PO SCH (13:51)
[2024-02-06] MEDS: chlordiazePOXIDE HCL 25 MG CAPSULE PO SCH (17:33)
[2024-02-06] MEDS: GABAPENTIN 100 MG CAPSULE PO SCH (22:14)
[2024-02-06] MEDS: THIAMINE 100 MG TABLET PO SCH (22:14)
[2024-02-06] MEDS: MIRTAZAPINE 30 MG TABLET PO SCH (22:14)
[2024-02-06] MEDS: levETIRAcetam 500 MG TABLET (FP) PO SCH (22:14)
[2024-02-06] MEDS: MELATONIN 5 MG TABLETS PO SCH (22:16)
[2024-02-07 11:39] LABS: HEMATOCRIT 43.5 % (35.4-49); HEMOGLOBIN 15.4 GM/dL (11.7-16.9); MCHC 35.4 g/dl (32.0-35.9); MEAN CELL VOLUME 96.2 fl (80-96); MEAN PLT VOLUME 9.5 fl (7.5-11.1); PLATELET COUNT 231 10^3/uL (134-434); RBC 4.52 M/mm3 (4.00-5.60); RDW 15.4 % (11.9-15.9); WHITE BLOOD COUNT 5.5 K/mm3 (4.0-10.0)
[2024-02-07 11:41] LABS: POTASSIUM 3.5 mmol/L (3.5-5.1)
[2024-02-07 11:43] LABS: ALBUMIN 4.2 g/dl (3.4-5.0); BLOOD UREA NITROGEN 13.8 mg/dL (7-18); CALCIUM 9.2 mg/dL (8.5-10.1)
[2024-02-07 11:46] LABS: CREATININE 1.2 mg/dL (0.55-1.3)
[2024-02-07 11:48] LABS: BILIRUBIN,TOTAL 0.6 mg/dL (0.2-1)
[2024-02-08] MEDS: chlordiazePOXIDE HCL 25 MG CAPSULE PO SCH (05:49)
[2024-02-08] MEDS: LACTULOSE 20 GM/30 ML UDC (FOR ORAL USE ONLY) PO ONE (13:43)
[2024-02-08] MEDS: LACTULOSE 20 GM/30 ML UDC (FOR ORAL USE ONLY) PO SCH (17:42)
[2024-02-09] MEDS ORDERED: chlordiazePOXIDE HCL 10 MG CAPSULE PO PRN
[2024-02-09] MEDS: chlordiazePOXIDE HCL 10 MG CAPSULE PO SCH (05:26)
[2024-02-10] MEDS: chlordiazePOXIDE HCL 10 MG CAPSULE PO SCH (05:58)
[2024-02-10] MEDS: METHOCARBAMOL 500 MG TABLET PO PRN (10:30)
[2024-02-10] MEDS: NALTREXONE HCL 50 MG TABLET PO SCH (13:20)
[2024-02-10] MEDS: IBUPROFEN 400 MG TABLET (FP) PO PRN (17:23)
[2024-02-11] MEDS: chlordiazePOXIDE HCL 10 MG CAPSULE PO ONE (05:20)
[2024-02-11 09:19] VITALS: BP 141/89; PULSE 89; RESP 18; TEMP 97.7
== END 2024-02-11 11:33 | disposition home or self-care (01) | DRG 775 ==
LOC: YASAS 12:00 → Y6N 13:36
PROVIDERS: ADMIT Allergy & Immunology; ATTEND Surgery
PROC: HZ2ZZZZ Detoxification Services for Substance Abuse Treatment (ICD-10-PCS; principal; 2024-02-06)
DX: F10.230 Alcohol dependence with withdrawal, uncomplicated (principal); F19.24 Other psychoactive substance dependence with psychoactive substance-induced mood disorder; F41.8 Other specified anxiety disorders; F32.A Depression, unspecified; F43.10 Post-traumatic stress disorder, unspecified; J45.20 Mild intermittent asthma, uncomplicated; K21.9 Gastro-esophageal reflux disease without esophagitis; G47.00 Insomnia, unspecified; R79.89 Other specified abnormal findings of blood chemistry; Z86.69 Personal history of other diseases of the nervous system and sense organs
CPT/HCPCS: 36415; 80053; 80305; 80307; 82140; 83036; 85027; 86780; 93005; 93010

== ENCOUNTER 2024-03-17 12:28 | Inpatient (IN) | payer OTHER ==
[2024-03-17 12:55] VITALS: BMI 27.1
[2024-03-17] MEDS ORDERED: ALBUTEROL SO4 HFA INHALER IH PRN (12:59)
[2024-03-17] MEDS ORDERED: DICYCLOMINE HCL 10 MG CAPSULE PO PRN (13:00)
[2024-03-17] MEDS ORDERED: MAGNESIUM HYDROX 2400MG/30ML ORAL SUSPENSION 30 ML CUP PO PRN (13:00)
[2024-03-17] MEDS ORDERED: BISMUTH SUBSALICYLATE 262 MG/15 ML BTL PO PRN (13:00)
[2024-03-17] MEDS ORDERED: MAG HYDROX/AL HYDROX/SIMETH 30 ML UNIT-DOSE CUP PO PRN (13:00)
[2024-03-17] MEDS ORDERED: ONDANSETRON *ODT* 4 MG TABLET SL PRN (13:00)
[2024-03-17] MEDS ORDERED: guaiFENesin 600 MG TABLET.ER (FP) PO PRN (13:00)
[2024-03-17] MEDS ORDERED: P-EPHED 60MG/TRIPROLIDI 2.5MG TABLET PO PRN (13:00)
[2024-03-17] MEDS ORDERED: ACETAMINOPHEN 325 MG TABLET (FP) PO PRN (13:00)
[2024-03-17] MEDS ORDERED: IBUPROFEN 400 MG TABLET (FP) PO PRN (13:00)
[2024-03-17] MEDS ORDERED: LOPERAMIDE HCL 2 MG CAPSULE PO PRN (13:00)
[2024-03-17] MEDS ORDERED: BENZOCAINE/MENTHOL (CHLORASEPTIC ) LOZENGE MM PRN (13:00)
[2024-03-17] MEDS ORDERED: BENZONATATE 200 MG CAPSULE PO PRN (13:00)
[2024-03-17] MEDS ORDERED: POLYETHYLENE GLYCOL (HEALTHYLAX) 3350 17 GM PACKET PO PRN (13:00)
[2024-03-17] MEDS: hydrOXYzine PAMOATE 25 MG CAPSULE (FP) PO PRN (15:37)
[2024-03-17] MEDS: IBUPROFEN 600 MG TABLET (FP) PO PRN (15:37)
[2024-03-17] MEDS: MIRTAZAPINE 15 MG TABLET (FP) PO SCH (21:57)
[2024-03-17] MEDS: levETIRAcetam 500 MG TABLET (FP) PO SCH (21:57)
[2024-03-17] MEDS: GABAPENTIN 100 MG CAPSULE PO SCH (21:57)
[2024-03-17] MEDS: THIAMINE 100 MG TABLET PO SCH (21:57)
[2024-03-17] MEDS: MELATONIN 5 MG TABLETS PO SCH (21:59)
[2024-03-17] MEDS ORDERED: MIRTAZAPINE 30 MG TABLET PO SCH (22:00)
[2024-03-18] MEDS: METHOCARBAMOL 500 MG TABLET PO PRN (05:38)
[2024-03-18] MEDS: PRENATAL VITAMINS W/ FOLIC ACID TABLET (FP) PO SCH (09:23)
[2024-03-18] MEDS ORDERED: chlordiazePOXIDE HCL 25 MG CAPSULE PO PRN (10:46)
[2024-03-18] MEDS: chlordiazePOXIDE HCL 25 MG CAPSULE PO SCH (11:18)
[2024-03-18 11:37] LABS: HEMATOCRIT 41.8 % (35.4-49); HEMOGLOBIN 14.6 GM/dL (11.7-16.9); MCH 33.7 pg (25.7-33.7); MCHC 34.9 g/dl (32.0-35.9); MEAN CELL VOLUME 96.7 fl (80-96); MEAN PLT VOLUME 9.3 fl (7.5-11.1); PLATELET COUNT 227 10^3/uL (134-434); RBC 4.32 M/mm3 (4.00-5.60); RDW 14.8 % (11.9-15.9); WHITE BLOOD COUNT 5.9 K/mm3 (4.0-10.0)
[2024-03-18 11:55] LABS: POTASSIUM 3.8 mmol/L (3.5-5.1)
[2024-03-18 12:01] LABS: ALBUMIN 4.3 g/dl (3.4-5.0); BLOOD UREA NITROGEN 17.2 mg/dL (7-18)
[2024-03-18 12:02] LABS: CALCIUM 9.1 mg/dL (8.5-10.1)
[2024-03-18 12:05] LABS: CREATININE 1.2 mg/dL (0.55-1.3)
[2024-03-18 12:06] LABS: BILIRUBIN,TOTAL 0.8 mg/dL (0.2-1); TOT PROT 7.7 g/dl (6.4-8.2)
[2024-03-19] MEDS: ARTIFICIAL TEARS OPHTHALMIC DROPS OU SCH (13:15)
[2024-03-20] MEDS: chlordiazePOXIDE HCL 25 MG CAPSULE PO SCH (05:22)
[2024-03-20] MEDS: NALTREXONE HCL 50 MG TABLET PO SCH (12:06)
[2024-03-20] MEDS: OFLOXACIN 0.3% OPHTHALMIC SOLUTION 5 ML BOTTLE OD SCH (17:05)
[2024-03-21] MEDS ORDERED: chlordiazePOXIDE HCL 10 MG CAPSULE PO PRN
[2024-03-21] MEDS: chlordiazePOXIDE HCL 10 MG CAPSULE PO SCH (05:36)
[2024-03-22] MEDS: chlordiazePOXIDE HCL 10 MG CAPSULE PO SCH (05:36)
[2024-03-23] MEDS: chlordiazePOXIDE HCL 10 MG CAPSULE PO ONE (05:59)
[2024-03-23 09:43] VITALS: BP 112/79; PULSE 95; RESP 16; TEMP 98
[2024-03-23] MEDS: OFLOXACIN 0.3% OPHTHALMIC SOLUTION 5 ML BOTTLE OD SCH (10:30)
== END 2024-03-23 10:40 | disposition home or self-care (01) | DRG 775 ==
LOC: YASAS 12:28 → Y6N 13:31
PROVIDERS: ADMIT Allergy & Immunology; ATTEND Surgery
PROC: HZ2ZZZZ Detoxification Services for Substance Abuse Treatment (ICD-10-PCS; principal; 2024-03-17)
DX: F10.230 Alcohol dependence with withdrawal, uncomplicated (principal); J45.20 Mild intermittent asthma, uncomplicated; H10.32 Unspecified acute conjunctivitis, left eye; H04.129 Dry eye syndrome of unspecified lacrimal gland; G47.00 Insomnia, unspecified; K21.9 Gastro-esophageal reflux disease without esophagitis; Z86.69 Personal history of other diseases of the nervous system and sense organs; Z56.0 Unemployment, unspecified
CPT/HCPCS: 36415; 80053; 80305; 80307; 85027

== ENCOUNTER 2024-05-10 13:44 | Inpatient (IN) | payer OTHER ==
[2024-05-10 15:34] VITALS: BMI 27.9
[2024-05-10] MEDS ORDERED: hydrOXYzine PAMOATE 25 MG CAPSULE (FP) PO PRN (17:40)
[2024-05-10] MEDS ORDERED: LOPERAMIDE HCL 2 MG CAPSULE PO PRN (17:40)
[2024-05-10] MEDS ORDERED: ACETAMINOPHEN 325 MG TABLET (FP) PO PRN (17:40)
[2024-05-10] MEDS ORDERED: ONDANSETRON *ODT* 4 MG TABLET SL PRN (17:40)
[2024-05-10] MEDS ORDERED: POLYETHYLENE GLYCOL (HEALTHYLAX) 3350 17 GM PACKET PO PRN (17:40)
[2024-05-10] MEDS ORDERED: IBUPROFEN 600 MG TABLET (FP) PO PRN (17:40)
[2024-05-10] MEDS ORDERED: MAG HYDROX/AL HYDROX/SIMETH 30 ML UNIT-DOSE CUP PO PRN (17:40)
[2024-05-10] MEDS ORDERED: NALOXONE (NARCAN) HCL 4 MG/0.1 ML SPRAY NS PRN (17:40)
[2024-05-10] MEDS ORDERED: BENZONATATE 200 MG CAPSULE PO PRN (17:40)
[2024-05-10] MEDS ORDERED: BENZOCAINE/MENTHOL (CHLORASEPTIC ) LOZENGE MM PRN (17:40)
[2024-05-10] MEDS ORDERED: BISMUTH SUBSALICYLATE 524 MG/30 ML PO PRN (17:40)
[2024-05-10] MEDS ORDERED: MAGNESIUM HYDROX 2400MG/30ML ORAL SUSPENSION 30 ML CUP PO PRN (17:40)
[2024-05-10] MEDS ORDERED: guaiFENesin 600 MG TABLET.ER (FP) PO PRN (17:40)
[2024-05-10] MEDS ORDERED: DICYCLOMINE HCL 10 MG CAPSULE PO PRN (17:40)
[2024-05-10] MEDS: NALOXONE (NYS OPIOID OVERDOSE PROGRAM) 4 MG/0.1 ML SPRAY NS ONE (18:26)
[2024-05-10] MEDS ORDERED: ALBUTEROL SO4 HFA INHALER IH PRN (18:34)
[2024-05-10] MEDS: THIAMINE 100 MG TABLET PO SCH (22:37)
[2024-05-10] MEDS: MELATONIN 5 MG TABLETS PO SCH (22:37)
[2024-05-10] MEDS: chlordiazePOXIDE HCL 25 MG CAPSULE PO SCH (22:38)
[2024-05-10] MEDS: levETIRAcetam 500 MG TABLET (FP) PO SCH (22:38)
[2024-05-11] MEDS: PRENATAL VITAMINS W/ FOLIC ACID TABLET (FP) PO SCH (10:15)
[2024-05-11 10:23] LABS: HEMATOCRIT 42.3 % (35.4-49); HEMOGLOBIN 14.5 GM/dL (11.7-16.9); MCH 33.4 pg (25.7-33.7); MCHC 34.3 g/dl (32.0-35.9); MEAN CELL VOLUME 97.4 fl (80-96); MEAN PLT VOLUME 9.2 fl (7.5-11.1); PLATELET COUNT 196 10^3/uL (134-434); RBC 4.34 M/mm3 (4.00-5.60); RDW 13.3 % (11.9-15.9); WHITE BLOOD COUNT 7.2 K/mm3 (4.0-10.0)
[2024-05-11 11:09] LABS: CHLORIDE 106 mmol/L (98-107); POTASSIUM 4.6 mmol/L (3.5-5.1); SODIUM 141 mmol/L (136-145)
[2024-05-11 11:11] LABS: ALBUMIN 4.4 g/dl (3.4-5.0); ANION GAP 6 mmol/L (4-13); CALCIUM 9.9 mg/dL (8.5-10.1); CO2 29 mmol/L (21-32)
[2024-05-11 11:12] LABS: BLOOD UREA NITROGEN 15.3 mg/dL (7-18); GLUCOSE,RANDOM 100 mg/dL (74-106)
[2024-05-11 11:14] LABS: SGOT/AST 29 U/L (15-37); SGPT/ALT 44 U/L (13-61)
[2024-05-11 11:15] LABS: CREATININE 1.1 mg/dL (0.55-1.3)
[2024-05-11 11:16] LABS: BILIRUBIN,TOTAL 0.4 mg/dL (0.2-1); TOT PROT 7.9 g/dl (6.4-8.2)
[2024-05-11 11:17] LABS: ALK PHOS 69 U/L (45-117)
[2024-05-11] MEDS: chlordiazePOXIDE HCL 25 MG CAPSULE PO PRN (13:48)
[2024-05-11] MEDS: GABAPENTIN 100 MG CAPSULE PO SCH (13:48)
[2024-05-11] MEDS: LORATADINE 10 MG TABLET PO SCH (20:54)
[2024-05-11] MEDS: MIRTAZAPINE 15 MG TABLET (FP) PO SCH (22:25)
[2024-05-12] MEDS: chlordiazePOXIDE HCL 25 MG CAPSULE PO SCH (05:42)
[2024-05-12] MEDS: METHOCARBAMOL 500 MG TABLET PO PRN (05:44)
[2024-05-12] MEDS ORDERED: NALOXONE (NYS OPIOID OVERDOSE PROGRAM) 4 MG/0.1 ML SPRAY NS PRN (14:01)
[2024-05-13] MEDS ORDERED: chlordiazePOXIDE HCL 10 MG CAPSULE PO PRN
[2024-05-13] MEDS: chlordiazePOXIDE HCL 10 MG CAPSULE PO SCH (05:15)
[2024-05-13] MEDS: FAMOTIDINE 20 MG TABLET PO SCH (10:09)
[2024-05-14] MEDS: chlordiazePOXIDE HCL 10 MG CAPSULE PO SCH (05:22)
[2024-05-14] MEDS: IBUPROFEN 400 MG TABLET (FP) PO PRN (17:19)
[2024-05-15 00:05] VITALS: RESP 18
[2024-05-15] MEDS: chlordiazePOXIDE HCL 10 MG CAPSULE PO ONE (05:37)
[2024-05-15 08:54] VITALS: BP 138/88; PULSE 71; TEMP 97.8
== END 2024-05-15 12:00 | disposition other institution (70) | DRG 775 ==
LOC: YASAS 13:44 → Y3N 17:47 → Y6N 05-11 04:37 → Y3N 05-11 05:00
PROVIDERS: ADMIT Surgery; ATTEND Surgery
PROC: HZ2ZZZZ Detoxification Services for Substance Abuse Treatment (ICD-10-PCS; principal; 2024-05-10)
DX: F10.230 Alcohol dependence with withdrawal, uncomplicated (principal); F41.8 Other specified anxiety disorders; K21.9 Gastro-esophageal reflux disease without esophagitis; J45.20 Mild intermittent asthma, uncomplicated; Z86.69 Personal history of other diseases of the nervous system and sense organs
CPT/HCPCS: 36415; 80053; 80305; 80307; 85027; 86780; 87811; 93005; 93010

== ENCOUNTER 2024-05-15 12:29 | Inpatient (IN) | payer OTHER ==
[2024-05-15] MEDS ORDERED: MAG HYDROX/AL HYDROX/SIMETH 30 ML UNIT-DOSE CUP PO PRN (13:38)
[2024-05-15] MEDS ORDERED: BENZONATATE 200 MG CAPSULE PO PRN (13:38)
[2024-05-15] MEDS ORDERED: guaiFENesin 600 MG TABLET.ER (FP) PO PRN (13:38)
[2024-05-15] MEDS ORDERED: IBUPROFEN 400 MG TABLET (FP) PO PRN (13:38)
[2024-05-15] MEDS ORDERED: hydrOXYzine PAMOATE 25 MG CAPSULE (FP) PO PRN (13:38)
[2024-05-15] MEDS ORDERED: NALOXONE (NARCAN) HCL 4 MG/0.1 ML SPRAY NS PRN (13:38)
[2024-05-15] MEDS ORDERED: LOPERAMIDE HCL 2 MG CAPSULE PO PRN (13:38)
[2024-05-15] MEDS ORDERED: POLYETHYLENE GLYCOL (HEALTHYLAX) 3350 17 GM PACKET PO PRN (13:38)
[2024-05-15] MEDS ORDERED: NALOXONE HCL 0.4 MG/ML VIAL IVPUSH PRN (13:38)
[2024-05-15] MEDS ORDERED: ACETAMINOPHEN 325 MG TABLET (FP) PO PRN (13:38)
[2024-05-15] MEDS ORDERED: BENZOCAINE/MENTHOL (CHLORASEPTIC ) LOZENGE MM PRN (13:38)
[2024-05-15] MEDS ORDERED: ALBUTEROL SO4 HFA INHALER IH PRN (13:41)
[2024-05-15] MEDS: GABAPENTIN 100 MG CAPSULE PO SCH (15:32)
[2024-05-15] MEDS: THIAMINE 100 MG TABLET PO SCH (21:20)
[2024-05-15] MEDS: MELATONIN 5 MG TABLETS PO SCH (21:20)
[2024-05-15] MEDS: levETIRAcetam 500 MG TABLET (FP) PO SCH (21:21)
[2024-05-15] MEDS: MIRTAZAPINE 15 MG TABLET (FP) PO SCH (21:22)
[2024-05-16] MEDS: PRENATAL VITAMINS W/ FOLIC ACID TABLET (FP) PO SCH (10:02)
[2024-05-16] MEDS: IBUPROFEN 600 MG TABLET (FP) PO PRN (13:27)
[2024-05-16 16:10] LABS: HIV INTERPRETATION NEGATIVE (NEGATIVE)
[2024-05-17] MEDS: METHOCARBAMOL 500 MG TABLET PO PRN (06:19)
[2024-05-19] MEDS ORDERED: LACTULOSE 20 GM/30 ML UDC (FOR ORAL USE ONLY) PO SCH (22:00)
[2024-05-20] MEDS: MAGNESIUM HYDROX 2400MG/30ML ORAL SUSPENSION 30 ML CUP PO PRN (06:15)
[2024-05-20] MEDS: TETRAHYDROZOLINE HCL EYE DROPS OU PRN (10:08)
[2024-05-21] MEDS ORDERED: LORATADINE 10 MG TABLET PO PRN (14:33)
[2024-05-23] MEDS: MIRTAZAPINE 30 MG TABLET PO SCH (21:23)
[2024-05-26 06:31] VITALS: BP 106/72; PULSE 87; RESP 17; TEMP 97.7
[2024-05-26] MEDS: NALOXONE (NYS OPIOID OVERDOSE PROGRAM) 4 MG/0.1 ML SPRAY NS ONE (12:25)
== END 2024-05-26 12:41 | disposition home or self-care (01) | DRG 772 ==
LOC: YASAS 12:29 → Y3W 12:33
PROVIDERS: ADMIT Psychiatry & Neurology Pain Medicine; ATTEND Psychiatry & Neurology Pain Medicine
PROC: HZ42ZZZ Group Counseling for Substance Abuse Treatment, Cognitive-Behavioral (ICD-10-PCS; principal; 2024-05-15)
DX: F10.20 Alcohol dependence, uncomplicated (principal); F41.8 Other specified anxiety disorders; J45.20 Mild intermittent asthma, uncomplicated; K21.9 Gastro-esophageal reflux disease without esophagitis; H10.13 Acute atopic conjunctivitis, bilateral
CPT/HCPCS: 36415; 82140; 86803; 87389

== ENCOUNTER 2024-07-15 10:41 | Inpatient (IN) | payer OTHER ==
[2024-07-15] MEDS ORDERED: ACETAMINOPHEN 325 MG TABLET (FP) PO PRN (11:07)
[2024-07-15] MEDS ORDERED: guaiFENesin 600 MG TABLET.ER (FP) PO PRN (11:07)
[2024-07-15] MEDS ORDERED: MAGNESIUM HYDROX 2400MG/30ML ORAL SUSPENSION 30 ML CUP PO PRN (11:07)
[2024-07-15] MEDS ORDERED: ONDANSETRON *ODT* 4 MG TABLET SL PRN (11:07)
[2024-07-15] MEDS ORDERED: MAG HYDROX/AL HYDROX/SIMETH 30 ML UNIT-DOSE CUP PO PRN (11:07)
[2024-07-15] MEDS ORDERED: NALOXONE (NARCAN) HCL 4 MG/0.1 ML SPRAY NS PRN (11:07)
[2024-07-15] MEDS ORDERED: POLYETHYLENE GLYCOL (HEALTHYLAX) 3350 17 GM PACKET PO PRN (11:07)
[2024-07-15] MEDS ORDERED: chlordiazePOXIDE HCL 25 MG CAPSULE PO PRN (11:07)
[2024-07-15] MEDS ORDERED: LOPERAMIDE HCL 2 MG CAPSULE PO PRN (11:07)
[2024-07-15] MEDS ORDERED: BISMUTH SUBSALICYLATE 262 MG/15 ML BTL PO PRN (11:07)
[2024-07-15] MEDS ORDERED: BENZOCAINE/MENTHOL (CHLORASEPTIC ) LOZENGE MM PRN (11:07)
[2024-07-15] MEDS ORDERED: IBUPROFEN 400 MG TABLET (FP) PO PRN (11:07)
[2024-07-15] MEDS ORDERED: DICYCLOMINE HCL 10 MG CAPSULE PO PRN (11:07)
[2024-07-15] MEDS ORDERED: BENZONATATE 200 MG CAPSULE PO PRN (11:07)
[2024-07-15 12:19] VITALS: BMI 26.4
[2024-07-15] MEDS: METHOCARBAMOL 500 MG TABLET PO PRN (12:20)
[2024-07-15] MEDS: hydrOXYzine PAMOATE 25 MG CAPSULE (FP) PO PRN (12:21)
[2024-07-15] MEDS: ALBUTEROL SO4 HFA INHALER IH SCH (12:23)
[2024-07-15] MEDS: amLODIPine BESYLATE 10 MG TABLET (FP) PO SCH (12:23)
[2024-07-15] MEDS: GABAPENTIN 100 MG CAPSULE PO SCH (13:11)
[2024-07-15] MEDS: chlordiazePOXIDE HCL 25 MG CAPSULE PO SCH (17:05)
[2024-07-15] MEDS: MELATONIN 5 MG TABLETS PO SCH (22:49)
[2024-07-15] MEDS: MIRTAZAPINE 30 MG TABLET PO SCH (22:50)
[2024-07-15] MEDS: THIAMINE 100 MG TABLET PO SCH (22:50)
[2024-07-15] MEDS: levETIRAcetam 500 MG TABLET (FP) PO SCH (22:52)
[2024-07-16] MEDS: NALTREXONE HCL 50 MG TABLET PO SCH (10:13)
[2024-07-16] MEDS: PRENATAL VITAMINS W/ FOLIC ACID TABLET (FP) PO SCH (10:14)
[2024-07-16 11:28] LABS: POTASSIUM 3.3 mmol/L (3.5-5.1)
[2024-07-16 11:30] LABS: CALCIUM 9.1 mg/dL (8.5-10.1)
[2024-07-16 11:32] LABS: ALBUMIN 4.6 g/dl (3.4-5.0); BLOOD UREA NITROGEN 14.4 mg/dL (7-18); HEMATOCRIT 45.2 % (35.4-49); HEMOGLOBIN 15.5 GM/dL (11.7-16.9); MCHC 34.3 g/dl (32.0-35.9); MEAN CELL VOLUME 96.1 fl (80-96); MEAN PLT VOLUME 9.6 fl (7.5-11.1); PLATELET COUNT 204 10^3/uL (134-434); RDW 13.5 % (11.9-15.9); WHITE BLOOD COUNT 8.3 K/mm3 (4.0-10.0)
[2024-07-16 11:34] LABS: CREATININE 1.1 mg/dL (0.55-1.3)
[2024-07-16 11:36] LABS: BILIRUBIN,TOTAL 0.8 mg/dL (0.2-1)
[2024-07-16] MEDS ORDERED: LORazepam 1 MG TABLET PO PRN (15:13)
[2024-07-16] MEDS: POTASSIUM CHLORIDE ORAL LIQUID 20 MEQ/15 ML PO ONE (15:43)
[2024-07-16] MEDS: LORazepam 2 MG TABLET PO SCH (17:35)
[2024-07-16] MEDS: POTASSIUM CHLORIDE ORAL LIQUID 20 MEQ/15 ML PO SCH (22:08)
[2024-07-17] MEDS ORDERED: chlordiazePOXIDE HCL 25 MG CAPSULE PO SCH (05:00)
[2024-07-17] MEDS: NALTREXONE HCL 50 MG TABLET PO SCH (10:11)
[2024-07-17 12:36] LABS: POTASSIUM 3.7 mmol/L (3.5-5.1)
[2024-07-17 12:39] LABS: ALBUMIN 4.3 g/dl (3.4-5.0); BLOOD UREA NITROGEN 17.5 mg/dL (7-18); CALCIUM 9.2 mg/dL (8.5-10.1)
[2024-07-17 12:42] LABS: CREATININE 1.2 mg/dL (0.55-1.3)
[2024-07-17 12:44] LABS: BILIRUBIN,TOTAL 0.7 mg/dL (0.2-1); TOT PROT 7.8 g/dl (6.4-8.2)
[2024-07-18] MEDS ORDERED: chlordiazePOXIDE HCL 10 MG CAPSULE PO PRN
[2024-07-18] MEDS ORDERED: chlordiazePOXIDE HCL 10 MG CAPSULE PO SCH (05:00)
[2024-07-18] MEDS: LORazepam 1 MG TABLET PO SCH (05:58)
[2024-07-18] MEDS: ALBUTEROL SO4 HFA INHALER IH PRN (10:30)
[2024-07-19] MEDS ORDERED: LORazepam 0.5 MG TABLET PO PRN
[2024-07-19] MEDS ORDERED: chlordiazePOXIDE HCL 10 MG CAPSULE PO SCH (05:00)
[2024-07-19] MEDS: LORazepam 0.5 MG TABLET PO SCH (05:54)
[2024-07-19 10:16] LABS: POTASSIUM 3.8 mmol/L (3.5-5.1)
[2024-07-19 10:18] LABS: ALBUMIN 3.9 g/dl (3.4-5.0); BLOOD UREA NITROGEN 10.3 mg/dL (7-18); CALCIUM 9.4 mg/dL (8.5-10.1)
[2024-07-19 10:21] LABS: CREATININE 0.9 mg/dL (0.55-1.3)
[2024-07-19 10:23] LABS: BILIRUBIN,TOTAL 0.5 mg/dL (0.2-1)
[2024-07-19] MEDS: IBUPROFEN 600 MG TABLET (FP) PO PRN (15:16)
[2024-07-19 21:52] VITALS: TEMP 98.1
[2024-07-20] MEDS ORDERED: chlordiazePOXIDE HCL 10 MG CAPSULE PO ONE (05:00)
[2024-07-20] MEDS: LORazepam 0.5 MG TABLET PO ONE (06:00)
[2024-07-20 06:52] VITALS: BP 110/74; PULSE 90; RESP 16
[2024-07-20] MEDS: NALOXONE (NYS OPIOID OVERDOSE PROGRAM) 4 MG/0.1 ML SPRAY NS SCH (09:37)
== END 2024-07-20 10:34 | disposition home or self-care (01) | DRG 775 ==
LOC: YASAS 10:41 → Y6N 11:55
PROVIDERS: ADMIT Allergy & Immunology; ATTEND Surgery
PROC: HZ2ZZZZ Detoxification Services for Substance Abuse Treatment (ICD-10-PCS; principal; 2024-07-15)
DX: F10.230 Alcohol dependence with withdrawal, uncomplicated (principal); F19.980 Other psychoactive substance use, unspecified with psychoactive substance-induced anxiety disorder; F41.1 Generalized anxiety disorder; F32.A Depression, unspecified; I10 Essential (primary) hypertension; J45.20 Mild intermittent asthma, uncomplicated; G40.909 Epilepsy, unspecified, not intractable, without status epilepticus; E87.6 Hypokalemia; Z86.69 Personal history of other diseases of the nervous system and sense organs
CPT/HCPCS: 36415; 80053; 80307; 85027; 86780; 93005; 93010

== ENCOUNTER 2024-09-03 16:32 | Inpatient (IN) | payer OTHER ==
[2024-09-03] MEDS ORDERED: ACETAMINOPHEN 325 MG TABLET (FP) PO PRN (16:59)
[2024-09-03] MEDS ORDERED: POLYETHYLENE GLYCOL (HEALTHYLAX) 3350 17 GM PACKET PO PRN (16:59)
[2024-09-03] MEDS ORDERED: BISMUTH SUBSALICYLATE 524 MG/30 ML PO PRN (16:59)
[2024-09-03] MEDS ORDERED: LOPERAMIDE HCL 2 MG CAPSULE PO PRN (16:59)
[2024-09-03] MEDS ORDERED: MAG HYDROX/AL HYDROX/SIMETH 30 ML UNIT-DOSE CUP PO PRN (16:59)
[2024-09-03] MEDS ORDERED: BENZONATATE 200 MG CAPSULE PO PRN (16:59)
[2024-09-03] MEDS ORDERED: ONDANSETRON *ODT* 4 MG TABLET SL PRN (16:59)
[2024-09-03] MEDS ORDERED: hydrOXYzine PAMOATE 25 MG CAPSULE (FP) PO PRN (16:59)
[2024-09-03] MEDS ORDERED: NALOXONE (NARCAN) HCL 4 MG/0.1 ML SPRAY NS PRN (16:59)
[2024-09-03] MEDS ORDERED: BENZOCAINE/MENTHOL (CHLORASEPTIC ) LOZENGE MM PRN (16:59)
[2024-09-03] MEDS ORDERED: MAGNESIUM HYDROX 2400MG/30ML ORAL SUSPENSION 30 ML CUP PO PRN (16:59)
[2024-09-03] MEDS ORDERED: chlordiazePOXIDE HCL 25 MG CAPSULE PO PRN (16:59)
[2024-09-03] MEDS ORDERED: guaiFENesin 600 MG TABLET.ER (FP) PO PRN (16:59)
[2024-09-03] MEDS ORDERED: DICYCLOMINE HCL 10 MG CAPSULE PO PRN (16:59)
[2024-09-03 17:02] VITALS: BMI 26.3
[2024-09-03] MEDS ORDERED: amLODIPine BESYLATE 5 MG TABLET (FP) ONE (18:37)
[2024-09-03] MEDS ORDERED: chlordiazePOXIDE HCL 25 MG CAPSULE ONE (18:37)
[2024-09-03] MEDS: chlordiazePOXIDE HCL 25 MG CAPSULE PO SCH (18:41)
[2024-09-03] MEDS: amLODIPine BESYLATE 10 MG TABLET (FP) PO SCH (18:41)
[2024-09-03] MEDS: GABAPENTIN 100 MG CAPSULE PO SCH (22:37)
[2024-09-03] MEDS: MELATONIN 5 MG TABLETS PO SCH (22:37)
[2024-09-03] MEDS: THIAMINE 100 MG TABLET PO SCH (22:38)
[2024-09-03] MEDS: METHOCARBAMOL 500 MG TABLET PO PRN (22:38)
[2024-09-03] MEDS: levETIRAcetam 500 MG TABLET (FP) PO SCH (22:38)
[2024-09-03] MEDS: MIRTAZAPINE 15 MG TABLET (FP) PO SCH (22:38)
[2024-09-04] MEDS: PRENATAL VITAMINS W/ FOLIC ACID TABLET (FP) PO SCH (10:37)
[2024-09-04] MEDS: NALTREXONE HCL 50 MG TABLET PO SCH (10:37)
[2024-09-04] MEDS: FLU VACCINE (FLULAVAL) PF 45 MCG/0.5 ML SYRINGE 2024-2025 IM ONE (11:17)
[2024-09-04 11:59] LABS: HEMATOCRIT 41.6 % (35.4-49); HEMOGLOBIN 14.5 GM/dL (11.7-16.9); MCH 33.8 pg (25.7-33.7); MCHC 34.9 g/dl (32.0-35.9); MEAN CELL VOLUME 96.8 fl (80-96); MEAN PLT VOLUME 8.8 fl (7.5-11.1); PLATELET COUNT 172 10^3/uL (134-434); WHITE BLOOD COUNT 5.8 K/mm3 (4.0-10.0)
[2024-09-04 12:12] LABS: CHLORIDE 105 mmol/L (98-107); POTASSIUM 3.5 mmol/L (3.5-5.1); SODIUM 142 mmol/L (136-145)
[2024-09-04 12:20] LABS: CALCIUM 9.6 mg/dL (8.5-10.1)
[2024-09-04 12:21] LABS: ALBUMIN 4.2 g/dl (3.4-5.0); ANION GAP 8 mmol/L (4-13); BLOOD UREA NITROGEN 10.1 mg/dL (7-18); CO2 28 mmol/L (21-32); GLUCOSE,RANDOM 109 mg/dL (74-106)
[2024-09-04 12:24] LABS: SGOT/AST 50 U/L (15-37); SGPT/ALT 64 U/L (13-61)
[2024-09-04 12:25] LABS: TOT PROT 7.9 g/dl (6.4-8.2)
[2024-09-04 12:27] LABS: ALK PHOS 97 U/L (45-117)
[2024-09-04 12:32] LABS: BILIRUBIN,TOTAL 0.6 mg/dL (0.2-1)
[2024-09-04] MEDS: IBUPROFEN 400 MG TABLET (FP) PO PRN (22:39)
[2024-09-05] MEDS: chlordiazePOXIDE HCL 25 MG CAPSULE PO SCH (05:53)
[2024-09-05] MEDS: IBUPROFEN 600 MG TABLET (FP) PO PRN (08:34)
[2024-09-05] MEDS: ALBUTEROL SO4 HFA INHALER IH PRN (10:22)
[2024-09-05] MEDS: DOCUSATE SODIUM 100 MG CAPSULE (FP) PO ONE (13:48)
[2024-09-06] MEDS ORDERED: chlordiazePOXIDE HCL 10 MG CAPSULE PO PRN
[2024-09-06] MEDS: chlordiazePOXIDE HCL 10 MG CAPSULE PO SCH (05:40)
[2024-09-07] MEDS: chlordiazePOXIDE HCL 10 MG CAPSULE PO SCH (05:55)
[2024-09-08] MEDS: chlordiazePOXIDE HCL 10 MG CAPSULE PO ONE (06:00)
[2024-09-08 09:01] VITALS: BP 131/83; PULSE 76; RESP 16; TEMP 98
== END 2024-09-08 10:02 | disposition home or self-care (01) | DRG 775 ==
LOC: YASAS 16:32 → Y6N 18:35
PROVIDERS: ADMIT Allergy & Immunology; ATTEND Allergy & Immunology
PROC: HZ2ZZZZ Detoxification Services for Substance Abuse Treatment (ICD-10-PCS; principal; 2024-09-03)
DX: F10.230 Alcohol dependence with withdrawal, uncomplicated (principal); F10.280 Alcohol dependence with alcohol-induced anxiety disorder; F10.24 Alcohol dependence with alcohol-induced mood disorder; F19.280 Other psychoactive substance dependence with psychoactive substance-induced anxiety disorder; G40.909 Epilepsy, unspecified, not intractable, without status epilepticus; I10 Essential (primary) hypertension; J45.20 Mild intermittent asthma, uncomplicated; K21.9 Gastro-esophageal reflux disease without esophagitis
CPT/HCPCS: 36415; 80053; 80305; 80307; 85027; 86780; 90656; 93005; 93010; G0008

== ENCOUNTER 2024-10-16 14:09 | Inpatient (IN) | payer OTHER ==
[2024-10-16 15:12] VITALS: BMI 26.3
[2024-10-16] MEDS ORDERED: MAGNESIUM HYDROX 2400MG/30ML ORAL SUSPENSION 30 ML CUP PO PRN (15:51)
[2024-10-16] MEDS ORDERED: BISMUTH SUBSALICYLATE 524 MG/30 ML PO PRN (15:51)
[2024-10-16] MEDS ORDERED: guaiFENesin 600 MG TABLET.ER (FP) PO PRN (15:51)
[2024-10-16] MEDS ORDERED: BENZONATATE 200 MG CAPSULE PO PRN (15:51)
[2024-10-16] MEDS ORDERED: chlordiazePOXIDE HCL 25 MG CAPSULE PO PRN (15:51)
[2024-10-16] MEDS ORDERED: ONDANSETRON *ODT* 4 MG TABLET SL PRN (15:51)
[2024-10-16] MEDS ORDERED: LOPERAMIDE HCL 2 MG CAPSULE PO PRN (15:51)
[2024-10-16] MEDS ORDERED: BENZOCAINE/MENTHOL (CHLORASEPTIC ) LOZENGE MM PRN (15:51)
[2024-10-16] MEDS ORDERED: IBUPROFEN 600 MG TABLET (FP) PO PRN (15:51)
[2024-10-16] MEDS ORDERED: IBUPROFEN 400 MG TABLET (FP) PO PRN (15:51)
[2024-10-16] MEDS ORDERED: MAG HYDROX/AL HYDROX/SIMETH 30 ML UNIT-DOSE CUP PO PRN (15:51)
[2024-10-16] MEDS ORDERED: POLYETHYLENE GLYCOL (HEALTHYLAX) 3350 17 GM PACKET PO PRN (15:51)
[2024-10-16] MEDS ORDERED: DICYCLOMINE HCL 10 MG CAPSULE PO PRN (15:51)
[2024-10-16] MEDS ORDERED: NALOXONE (NARCAN) HCL 4 MG/0.1 ML SPRAY NS PRN (15:51)
[2024-10-16] MEDS ORDERED: PRENATAL VITAMINS W/ FOLIC ACID TABLET (FP) PO ONE (16:50)
[2024-10-16] MEDS: PRENATAL VITAMINS W/ FOLIC ACID TABLET (FP) PO SCH (16:53)
[2024-10-16] MEDS: chlordiazePOXIDE HCL 25 MG CAPSULE PO SCH (17:22)
[2024-10-16] MEDS: ACETAMINOPHEN 325 MG TABLET (FP) PO PRN (17:23)
[2024-10-16] MEDS: THIAMINE 100 MG TABLET PO SCH (22:25)
[2024-10-16] MEDS: MIRTAZAPINE 30 MG TABLET PO SCH (22:25)
[2024-10-16] MEDS: levETIRAcetam 500 MG TABLET (FP) PO SCH (22:25)
[2024-10-16] MEDS: GABAPENTIN 100 MG CAPSULE PO SCH (22:25)
[2024-10-16] MEDS: MELATONIN 5 MG TABLETS PO SCH (22:27)
[2024-10-16] MEDS: ALBUTEROL SO4 HFA INHALER IH PRN (22:28)
[2024-10-17] MEDS: amLODIPine BESYLATE 10 MG TABLET (FP) PO SCH (10:12)
[2024-10-17] MEDS: METHOCARBAMOL 500 MG TABLET PO PRN (10:12)
[2024-10-17] MEDS: NALTREXONE HCL 50 MG TABLET PO SCH (10:13)
[2024-10-17 12:13] LABS: HEMATOCRIT 39.5 % (35.4-49); HEMOGLOBIN 13.7 GM/dL (11.7-16.9); MCH 34.3 pg (25.7-33.7); MCHC 34.7 g/dl (32.0-35.9); PLATELET COUNT 212 10^3/uL (134-434); RBC 3.99 M/mm3 (4.00-5.60); RDW 14.4 % (11.9-15.9); WHITE BLOOD COUNT 5.8 K/mm3 (4.0-10.0)
[2024-10-17 12:14] LABS: CHLORIDE 106 mmol/L (98-107); POTASSIUM 4.2 mmol/L (3.5-5.1); SODIUM 141 mmol/L (136-145)
[2024-10-17 12:19] LABS: CALCIUM 9.2 mg/dL (8.5-10.1)
[2024-10-17 12:20] LABS: ALBUMIN 4.1 g/dl (3.4-5.0); ANION GAP 5 mmol/L (4-13); CO2 30 mmol/L (21-32); GLUCOSE,RANDOM 94 mg/dL (74-106)
[2024-10-17 12:23] LABS: BLOOD UREA NITROGEN 16.6 mg/dL (7-18); CREATININE 1.2 mg/dL (0.55-1.3); SGOT/AST 49 U/L (15-37); SGPT/ALT 89 U/L (13-61)
[2024-10-17 12:25] LABS: BILIRUBIN,TOTAL 0.6 mg/dL (0.2-1); TOT PROT 7.1 g/dl (6.4-8.2)
[2024-10-17 12:26] LABS: ALK PHOS 62 U/L (45-117)
[2024-10-17] MEDS: PNEUMOC 20-VAL CONJ-DIP CRM/PF 0.5 ML SYRINGE IM ONE (12:42)
[2024-10-18] MEDS: chlordiazePOXIDE HCL 25 MG CAPSULE PO SCH (05:43)
[2024-10-18] MEDS ORDERED: levETIRAcetam 250 MG TABLET PO ONE (21:36)
[2024-10-19] MEDS ORDERED: chlordiazePOXIDE HCL 10 MG CAPSULE PO PRN
[2024-10-19] MEDS: chlordiazePOXIDE HCL 10 MG CAPSULE PO SCH (05:53)
[2024-10-19] MEDS: hydrOXYzine PAMOATE 25 MG CAPSULE (FP) PO PRN (10:15)
[2024-10-19] MEDS ORDERED: levETIRAcetam 250 MG TABLET PO ONE (21:17)
[2024-10-20] MEDS: chlordiazePOXIDE HCL 10 MG CAPSULE PO SCH (05:41)
[2024-10-20] MEDS ORDERED: levETIRAcetam 250 MG TABLET PO ONE ×2 (10:02→22:00)
[2024-10-21] MEDS: chlordiazePOXIDE HCL 10 MG CAPSULE PO ONE (05:49)
[2024-10-21 07:09] VITALS: RESP 17
[2024-10-21 08:44] VITALS: BP 134/82; PULSE 78; TEMP 97.9
== END 2024-10-21 12:15 | disposition other institution (70) | DRG 775 ==
LOC: YASAS 14:09 → Y6N 16:16
PROVIDERS: ADMIT Allergy & Immunology; ATTEND Allergy & Immunology
PROC: HZ2ZZZZ Detoxification Services for Substance Abuse Treatment (ICD-10-PCS; principal; 2024-10-16)
DX: F10.230 Alcohol dependence with withdrawal, uncomplicated (principal); F10.280 Alcohol dependence with alcohol-induced anxiety disorder; F10.282 Alcohol dependence with alcohol-induced sleep disorder; F10.24 Alcohol dependence with alcohol-induced mood disorder; F32.A Depression, unspecified; G40.909 Epilepsy, unspecified, not intractable, without status epilepticus; I10 Essential (primary) hypertension; J45.20 Mild intermittent asthma, uncomplicated; R74.01 Elevation of levels of liver transaminase levels
CPT/HCPCS: 36415; 80053; 80177; 80305; 80307; 85027; 86780; 90677; 93005; 93010; G0009

== ENCOUNTER 2025-04-04 12:03 | Inpatient (IN) | payer OTHER ==
[2025-04-04 12:30] VITALS: BMI 25.4
[2025-04-04] MEDS ORDERED: BENZOCAINE/MENTHOL (CHLORASEPTIC ) LOZENGE MM PRN (12:56)
[2025-04-04] MEDS ORDERED: POLYETHYLENE GLYCOL (HEALTHYLAX) 3350 17 GM PACKET PO PRN (12:56)
[2025-04-04] MEDS ORDERED: guaiFENesin 600 MG TABLET.ER (FP) PO PRN (12:56)
[2025-04-04] MEDS ORDERED: LOPERAMIDE HCL 2 MG CAPSULE PO PRN (12:56)
[2025-04-04] MEDS ORDERED: ONDANSETRON *ODT* 4 MG TABLET SL PRN (12:56)
[2025-04-04] MEDS ORDERED: IBUPROFEN 600 MG TABLET (FP) PO PRN (12:56)
[2025-04-04] MEDS ORDERED: IBUPROFEN 400 MG TABLET (FP) PO PRN (12:56)
[2025-04-04] MEDS ORDERED: ACETAMINOPHEN 325 MG TABLET (FP) PO PRN (12:56)
[2025-04-04] MEDS ORDERED: NALOXONE (NARCAN) HCL 4 MG/0.1 ML SPRAY NS PRN (12:56)
[2025-04-04] MEDS ORDERED: BENZONATATE 200 MG CAPSULE PO PRN (12:56)
[2025-04-04] MEDS ORDERED: BISMUTH SUBSALICYLATE 524 MG/30 ML PO PRN (12:56)
[2025-04-04] MEDS ORDERED: DICYCLOMINE HCL 10 MG CAPSULE PO PRN (12:56)
[2025-04-04] MEDS ORDERED: MAG HYDROX/AL HYDROX/SIMETH 30 ML UNIT-DOSE CUP PO PRN (12:56)
[2025-04-04] MEDS ORDERED: levETIRAcetam 500 MG TABLET (FP) PO ONE (13:39)
[2025-04-04] MEDS: levETIRAcetam 500 MG TABLET (FP) PO SCH (13:43)
[2025-04-04] MEDS ORDERED: ALBUTEROL SO4 HFA INHALER IH PRN (14:11)
[2025-04-04] MEDS: METHOCARBAMOL 500 MG TABLET PO PRN (17:20)
[2025-04-04] MEDS: GABAPENTIN 100 MG CAPSULE PO SCH (22:18)
[2025-04-04] MEDS: MELATONIN 5 MG TABLETS PO SCH (22:18)
[2025-04-04] MEDS: THIAMINE 100 MG TABLET PO SCH (22:18)
[2025-04-05 09:43] LABS: MCHC 35.4 g/dl (32.3-36.5); MEAN CELL VOLUME 94.5 fl (79.0-92.2); MEAN PLT VOLUME 10.4 fl (9.4-12.4); RDW 12.5 % (12.0-15.6)
[2025-04-05 10:03] LABS: GLUCOSE,RANDOM 86.0 mg/dL (74-106); TOT PROT 8.4 g/dl (6.4-8.2)
[2025-04-05 10:04] LABS: CO2 27.0 mmol/L (21-32)
[2025-04-05 10:06] LABS: ALK PHOS 78.0 U/L (40-150)
[2025-04-05 10:09] LABS: CREATININE 0.99 mg/dL (0.55-1.3); SGOT/AST 91.0 U/L (5-34); SGPT/ALT 73.0 U/L (0-55)
[2025-04-05] MEDS: amLODIPine BESYLATE 10 MG TABLET (FP) PO SCH (10:15)
[2025-04-05] MEDS: PRENATAL VITAMINS W/ FOLIC ACID TABLET (FP) PO SCH (10:16)
[2025-04-05] MEDS: MAGNESIUM HYDROX 2400MG/30ML ORAL SUSPENSION 30 ML CUP PO PRN (14:24)
[2025-04-05] MEDS: hydrOXYzine PAMOATE 25 MG CAPSULE (FP) PO PRN (17:21)
[2025-04-05] MEDS ORDERED: MIRTAZAPINE 15 MG TABLET (FP) ONE (21:31)
[2025-04-05] MEDS: MIRTAZAPINE 30 MG TABLET PO SCH (22:14)
[2025-04-06] MEDS ORDERED: MIRTAZAPINE 15 MG TABLET (FP) ONE (21:09)
[2025-04-07] MEDS ORDERED: MIRTAZAPINE 15 MG TABLET (FP) ONE (21:45)
[2025-04-08] MEDS ORDERED: MIRTAZAPINE 15 MG TABLET (FP) ONE (21:10)
[2025-04-09 05:52] VITALS: RESP 18
[2025-04-09 10:52] VITALS: BP 135/84; PULSE 77; TEMP 97.9
== END 2025-04-09 09:19 | disposition home or self-care (01) | DRG 775 ==
LOC: YASAS 12:03 → Y3N 13:28
PROVIDERS: ADMIT Neuromusculoskeletal Medicine & OMM; ATTEND Allergy & Immunology
PROC: HZ2ZZZZ Detoxification Services for Substance Abuse Treatment (ICD-10-PCS; principal; 2025-04-04)
DX: F10.230 Alcohol dependence with withdrawal, uncomplicated (principal); F10.280 Alcohol dependence with alcohol-induced anxiety disorder; F10.282 Alcohol dependence with alcohol-induced sleep disorder; F32.A Depression, unspecified; F10.24 Alcohol dependence with alcohol-induced mood disorder; G40.909 Epilepsy, unspecified, not intractable, without status epilepticus; I10 Essential (primary) hypertension; J45.20 Mild intermittent asthma, uncomplicated; K21.9 Gastro-esophageal reflux disease without esophagitis; R74.01 Elevation of levels of liver transaminase levels
CPT/HCPCS: 36415; 80053; 80307; 85027